=== PATIENT | male | born 1970 | race Caucasian/White ===

== ENCOUNTER 2019-06-16 06:18 | Day surgery (SDC) | payer MEDICAID, SELFPAY ==
[2019-05-31 08:42] VITALS: BMI 32.4
--- NOTE | 2019-06-15 19:23 | PCM.HP.BLA ---
History and Physical Date of Admission: 06/16/19 HISTORY OF PRESENT ILLNESS 49 year old man presents for evaluation for TBSE. He is concerned about a lesion on his left postauricular area that has increased in size over the last several months and has become more raised in configuration. He denies trauma. He denies fever. He denies drainage or bleeding. Denies recent infection. It has developed a cutaneous horn component that forms and then falls off and then reforms again. He presents today for further evaluation and treatment. PAST MEDICAL HISTORY Asthma Back problem Diabetes Right breast cancer. PAST SURGICAL HISTORY Right breast biopsy. ALLERGIES aspirin Penicillins MEDICATIONS liraglutide metformin FAMILY HISTORY Other - Arthritis, Diabetes, Heart disease SOCIAL HISTORY Smoking Status: Current every day smoker alcohol intake: never substance use type: does not use REVIEW OF SYSTEMS General - Denies fever, fatigue, and weight loss. Eyes - Denies cataracts and glaucoma. ENT - Denies nasal congestion and sore throat. Endocrine - Denies excessive thirst and urination. Skin - Denies skin cancer. Has enlarging cutaneous horn lesion left postauricular area. Musculoskeletal - Has joint pain, joint stiffness, and back pain. Denies weakness of muscles and joints and arthritis. Neuro - Denies headaches. Cardiovascular - Denies chest pain, fatigue, and shortness of breath with exertion. Psych - Denies anxiety and depression. Respiratory - Denies chronic cough and shortness of breath. Has asthma. Patient is a smoker. Gastrointestinal - Denies nausea, vomiting, diarrhea, and constipation. Hematologic - Denies abnormal bruising and bleeding. Genitourinary - Denies hematuria and urinary frequency. PHYSICAL EXAMINATION General - Alert and Oriented. HEENT - PERRL. EOMI. Throat is clear. On the left postauricular area is a cutaneous horn lesion that is raised in configuration. Has irregular borders. No ulceration. Lesion is nontender. Measures 7 mm. Neck - Supple and nontender. No cervical adenopathy. No suspicious lesions noted. Lungs - Clear to auscultation. Heart - Regular rate and rhythm. Abdomen - Soft and nondistended. Extremities - FROM. No axillary adenopathy. Radial pulses are palpable. No suspicious lesions noted. Neuro - CN II-XII grossly intact. Psych - Normal mood and affect. ASSESSMENT 1. 7 mm cutaneous horn lesion left postauricular area. 2. Smoker. PLAN Recommend excision of this cutaneous horn lesion left postauricular area and send it to Pathology for analysis to rule out carcinoma. Will need a full thickness excision. If carcinoma is present, then further excision will be needed with skin graft or skin flap reconstruction. Surgery will be done on an outpatient basis under local anesthesia and IV sedation. Patient was informed of the risks and complications of the procedure including alternatives to surgery. These were discussed with the patient personally. Patient voices understanding and wishes to proceed. Some of the risks and complications were included in a form from the [employer]. Encouraged patient to stop smoking as it may have deleterious effects on wound healing.
--- NOTE | 2019-06-16 | LES_PTH ---
PATIENT: WILLOW FLEMING [place] [facility] [place][id number] AGE/SX: 49/M ROOM: RE06/16/[address]: Dr. Vasile Woodall MD : 1970 BED: DIS: 06/16/2019 SPEC #: [id number] RECD: 06/16/19 08:21 STATUS: JAMILA JANNET #: [id number] AMANDA: 06/16/19 00:[address]: Vasile Woodall DEPT: SURGICAL PATHOLOGY RECD BY: Dorota Contreras ENTERED: 06/16/19 09:44 SP TYPE: Lesion OTHR DR: Dr. Jaime Calle MD Tissues: A - Skin of postauricular region B - Skin of postauricular region Procedures: Frozen Section (charge) Surgery Specimen Level IV HEADER OPERATION: Excision cutaneous horn lesion postauricular area PRE-OP DIAGNOSIS: 7 mm cutaneous horn lesion left postauricular area TISSUE SUBMITTED: A - Cutaneous horn lesion left postauricular area, suture at 12 o'clock, frozen section, B - Extra tissue verrucous keratosis FROZEN SECTION DIAGNOSIS A. Cutaneous horn lesion, right postauricular area, biopsy: Verrucous keratosis. Negative for malignancy. SJ:nichol 06/16/19 MICROSCOPIC DIAGNOSIS A. Skin lesion, right postauricular region, biopsy: Consistent with verrucous keratosis. B. Extra tissue verrucous keratosis, biopsy: Solar elastosis and mild superficial dermatitis. No evidence of malignancy. See comment. AM:nichol 06/20/19 COMMENT B. Verrucous keratosis is not present in this specimen. Clinical correlation is suggested. MICROSCOPIC DESCRIPTION Slides are reviewed. GROSS DESCRIPTION A - Received fresh for frozen section diagnosis labeled with the patient's name is a specimen designated cutaneous horn lesion left postauricular area. The specimen consists of a conical piece of choi-white skin measuring 1.1 x 0.4 x 0.5 cm. The specimen is oriented by a suture at 12 o'clock. The specimen is inked as follows: 12 o'clock - black, 6 o'clock - blue. The specimen is bisected and submitted entirely for frozen section diagnosis in one cassette. / SJ:nichol 06/16/19 B - Received in fixative is one container labeled with the patient's name and designated extra tissue verrucous keratosis. The specimen consists of an irregular fragment of light choi soft tissue measuring 1.5 x 1 x 0.2 cm. The specimen is totally submitted in one cassette. / AM:nichol 06/19/19 TC:5 CPT: 32578 x2, 52185
[2019-06-16 06:29] VITALS: BP 122/79; PULSE 110; RESP 17; TEMP 36.4; O2SAT 98; BMI 32.1
[2019-06-16 06:50] LABS: Bedside Glucose 358 mg/dL (70-110)
[2019-06-16] MEDS: Mupirocin Ointment 22gm Tube 1 APPLIC (08:22)
--- NOTE | 2019-06-16 08:48 | OP.PCM_ITS ---
Report of Operation Date of Procedure: 06/16/19 Pre-Operative Diagnosis: 1. 7 mm cutaneous horn lesion left postauricular area. 2. Smoker. Post-Operative Diagnosis: 1. 7 mm verrucous keratosis left postauricular area. 2. Smoker. Surgery/Procedure Performed:: Excision 7 mm verrucous keratosis left postauricular area with 3 cm layered closure. Description of Surgical Findings:: 49 year old man presents for evaluation for TBSE. He is concerned about a lesion on his left postauricular area that has increased in size over the last several months and has become more raised in configuration. He denies trauma. He denies fever. He denies drainage or bleeding. Denies recent infection. It has developed a cutaneous horn component that forms and then falls off and then reforms again. Patient was informed of the risks and complications of the procedure including alternatives to surgery. These were discussed with the patient personally. Patient voices understanding and wishes to proceed. Some of the risks and complications were included in a form from the [employer]. Encouraged patient to stop smoking as it may have deleterious effects on wound healing. Frozen section - verrucous keratosis and no carcinoma seen. 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 Specimen's removed: 1. Cutaneous horn lesion left postauricular area to Pathology as a frozen section. 2. Verrucous keratosis left postauricular area to Pathology. Drains: None. Estimated Blood Loss (mL): 5 ml. Description of Procedure: Patient was taken to OR in supine position and was given IV sedation. The left postauricular area was prepped and draped in the usual fashion. SCD's were placed for DVT prophylaxis. Perioperative antibiotics were given intravenously. The cutaneous horn lesion left postauricular area was infiltrated with xylocaine and epinephrine. After waiting 5 minutes for the anesthetic to take effect, I excised the cutaneous horn lesion in a circular fashion into the subcutaneous tissue. A suture was marked at 12 oclock position for pathology orientation. The lesion was sent to Pathology as a frozen section for analysis to rule out carcinoma. Frozen section showed a verrucous keratosis and no c arcinoma seen. I then extended the defect into an elliptical one for ease in wound closure. The additional tissue was sent to Pathology for analysis. Hemostasis was obtained with electrocautery. I excised the lesion with a 2 mm margin in all directions thus making it an 11 mm excision and a 3 cm layered closure. The wound was closed in a layered fashion with 4-0 Monocryl interrupted sutures for the deep dermis and subcutaneous tissue. The skin was approximated with 4-0 Prolene simple interrupted sutures. Antibiotic ointment was applied to the incision followed by an Op Site dressing. Patient tolerated the procedure well and was sent to PACU in satisfactory condition. Patient will be sent home on antibiotics and pain medication. He will keep his head elevated during the initial postop period. Patient will followup in a week for a wound check and for discussion of the pathology report and for removal of the sutures. Grafts/Implants Used: None. - Complications None. - Admit VTE Documentation VTE Present on Admission: No VTE Mechan Device Prophylaxis: SCD's VTE Pharm Prophylaxis ordered?: No Code Visit Surgery Charges CPT - 96320 ICD-10 - D49.2, L82.1, F17.200 07535 D49.2, L82.1, F17.200
[2019-06-16 08:51] VITALS: BP 120/78; BP 122/79; PULSE 97; RESP 16; TEMP 36.4; O2SAT 94
[2019-06-16 08:55] VITALS: BP 112/83; BP 122/79; PULSE 97; RESP 16; O2SAT 95
--- NOTE | 2019-06-16 08:56 | DCINST_ITS ---
You will use the following diet at home:: No restrictions Discharge Activity: May not drive while taking narcotic pain medications., May Shower - in2 days, - - keep head elevated. no heavy lifting. May shower in (days): 2 May resume sexual activity in: No Restrictions Weight Bearing Status: Weight bearing as tolerated Lifting Restrictions: 20 lbs. Keep extremity elevated above heart level: - - elevate head. Call your doctor if your incision/area has: Continuous Slow Oozing, Sudden Increased Bleeding, Increased Pain/ Swelling, Increased Redness, Foul Smelling Discharge, Swelling at the incision site Call your doctor if you observe: Fever of 101 or Higher, Coldness, Increased Pain, Shortness of breath, Chest pain, Calf discomfort, Uncontrolled pain Suture Line Care: - - apply antibiotic ointment to suture line daily. Change Dressing in (Days):: 2 Allergies/Adverse Reactions: Allergies aspirin Allergy (Verified 06/16/19 06:26) ALLERGY Penicillins Allergy (Verified 06/16/19 06:26) ALLERGY Medications to take at Discharge liraglutide 0.6 mg/0.1 mL (18 mg/3 mL) subcutaneous pen injector 0.6 mg SC DAILY 04/06/19 metformin 1,000 mg tablet 1,000 mg PO BID 04/06/19 Clindamycin HCl [Cleocin] 300 mg PO TID #12 cap 06/16/19 Oxycodone HCl/Acetaminophen [Percocet 5/325] 1 tab PO TID PRN PRN 5 Days #15 tab 06/16/19 The following prescriptions were given: Clindamycin HCl [Cleocin] 300 mg PO TID #12 cap Prescription Printed Oxycodone HCl/Acetaminophen [Percocet 5/325] 1 tab PO TID PRN PRN 5 Days #15 tab PRN Reason: Pain Prescription Printed Primary Care Physician: Jaime Calle MD [Primary Care Provider] - Test Results: Test results from this visit will be discussed in further detail at your follow- up appointment, if applicable. Please Follow Up With: Vasile Woodall MD When: one week. call [phone] for appt. Proposed Discharge Date: 06/16/19
[2019-06-16 09:00] VITALS: BP 100/84; BP 122/79; PULSE 93; RESP 16; O2SAT 92
[2019-06-16 09:05] VITALS: BP 121/82; BP 122/79; BP 124/83; PULSE 93; PULSE 96; RESP 16; TEMP 36.4; O2SAT 95
[2019-06-16 09:31] LABS: Bedside Glucose 274 mg/dL (70-110)
[2019-06-16 09:43] VITALS: BP 122/79
== END 2019-06-16 09:46 | disposition home or self-care (01) ==
LOC: SDC 06:18 → AC 06:19
PROVIDERS: Family Provider Family Medicine; PCP Family Medicine; Referring Provider Surgery; Visit Provider Surgery
DX: L57.0 Actinic keratosis (principal); L57.8 Other skin changes due to chronic exposure to nonionizing radiation; L30.9 Dermatitis, unspecified; W89.9XXA Exposure to unspecified man-made visible and ultraviolet light, initial encounter; Y93.9 Activity, unspecified; Y92.9 Unspecified place or not applicable; Y99.9 Unspecified external cause status; E11.9 Type 2 diabetes mellitus without complications; J45.909 Unspecified asthma, uncomplicated; F17.200 Nicotine dependence, unspecified, uncomplicated; Z79.84 Long term (current) use of oral hypoglycemic drugs; Z79.899 Other long term (current) drug therapy; Z88.6 Allergy status to analgesic agent; Z88.0 Allergy status to penicillin; Z85.3 Personal history of malignant neoplasm of breast
CPT/HCPCS: 00300; 11442; 12052; 82962; 88305; 88331; J7120

== ENCOUNTER 2022-07-29 11:00 | Outpatient (RCR) | payer MEDICAID, SELFPAY ==
[2022-07-15 09:22] VITALS: BP 85/59; PULSE 74; TEMP 36.2
--- NOTE | 2022-07-15 13:11 | HP.PCM_ITS ---
History of Present Illness Date of Service: 07/15/22 Chief Complaint: Follow-up on decubitus ulcer of the left ischium and sacral area History of Wound: This is a 52-year-old white male that developed sepsis and in December had an infection in the spine they trying to clean it out and he developed paralysis 2 days later postop. Patient was hospitalized for 3 months and developed 2 decubitus ulcers one in the sacral area and one on the left ischium area. They have progressively gotten worse and the are down to bone stage IV decubitus ulcers. Patient has been seen at the [facility] and was transferred to our center. This was through family's request. Patient is currently on a memory foam type bedding. Patient did have wound vacs but was removed by the physician feeling they were getting worse. And told just to do wet-to-dry dressings. So for the last month approximately has been doing wet-to-dry dressings to the sacral and left ischium area He also has developed a unstageable area on the underneath the left ischium that has eschar. Patient is currently receiving Zosyn through his PICC line. Patient is a smoker and diabetic. Is currently controlled with his Victoza metformin. He is also on clindamycin 3 times a day. [facility] Medical History (Updated 07/15/22 @ 13:35 by Renu Toth NP, [employer]) Asthma Back problem Diabetes Home Medications liraglutide 0.6 mg/0.1 mL (18 mg/3 mL) subcutaneous pen injector (Victoza 2-Rudi) 0.6 mg subcut DAILY 04/06/19 [History Last Taken Unknown] metformin 1,000 mg tablet 1,000 mg PO BID diabetes 04/06/19 [History Last Taken Unknown] clindamycin HCl 300 mg capsule 300 mg PO TID #12 caps 06/16/19 [Rx Last Taken Unknown] Allergy/AdvReac Type Severity Reaction Status Date / Time aspirin Allergy ALLERGY Verified 06/22/19 13:19 Penicillins Allergy ALLERGY Verified 06/22/19 13:19 Family History Other Arthritis Diabetes Heart disease Social History Smoking Status: Current every day smoker alcohol intake: never substance use type: does not use additional social history: DOES NOT USE ASPIRIN DOES NOT USE IBUPROFEN ROS Constitutional Constitutional: Reports systems reviewed and no addt'l complaints, except as documented Eyes Eyes: Reports systems reviewed and no addt'l complaints, except as documented ENT HEENT: Reports systems reviewed and no addt'l complaints, except as documented Cardiovascular Cardiovascular: Reports systems reviewed and no addt'l complaints, except as documented Respiratory/Chest Respiratory/Chest: Reports systems reviewed and no addt'l complaints, except as documented Gastrointestinal Gastrointestinal: Reports systems reviewed and no addt'l complaints, except as documented Genitourinary Genitourinary: Reports systems reviewed and no addt'l complaints, except as documented Musculoskeletal Musculoskeletal: Reports systems reviewed and no addt'l complaints, except as documented Integumentary Integumentary: Reports skin ulcer Neurologic Neurologic: Reports systems reviewed and no addt'l complaints, except as documented Psychiatric Psychiatric: Reports systems reviewed and no addt'l complaints, except as documented Endocrine Endocrinology: Reports systems reviewed and no addt'l complaints, except as documented Hematologic/Lymphatic Hematologic/Lymphatic: Reports systems reviewed and no addt'l complaints, except as documented Allergic/Immunologic Allergic/Immunologic: Reports systems reviewed and no addt'l complaints, except as documented Vital Signs Vital Signs Vital Signs: 07/15/22 09:22 Temperature 97.2 F L Temperature Source Temporal Pulse Rate 74 Blood Pressure 85/59 L Blood Pressure Mean 67 Blood Pressure Source Monitor Blood Pressure Position Sitting Blood Pressure Location Right Arm Physical Exam Const oriented x3 General Appearance: cooperative Exam Limitations: no limitations HEENT normocephalic Eyes PERRL Neck full ROM Resp normal respiratory effort Effort and Inspection: able to speak in complete sentences Auscultation: clear to auscultation bilaterally Cardio regular rate and regular rhythm Palpation: normal PMI Rate: regular rate Rhythm: regular rhythm GI Auscultation: normoactive bowel sounds Palpation: soft and no hepatosplenomegaly Back/Spine Cervical Spine: cervical ROM normal Thoracic Spine / Upper Back: normal to inspection Extremity normal to inspection Skin Skin Narrative: 2 large decubitus ulcers measuring around 10 x 20 cm with 5 cm in depth both on his left ischium and sacral area. Skin is beefy red does have some necrotic tissue in both. Currently receiving wet-to-dry dressings. Other skin areas look well intact and supple. Is well-nourished though he is then Neuro oriented x3 Psych Appearance: grossly normal Speech: normal speech Debridement Note Debridement Note Wound debrided: Left ischium decubitus ulcer Wound Grade/Stage: Stage IV Type of Debridement: Excisional debridement Anesthesia Used: 5% Lidocaine Gel Depth: to bone Percentage of wound debrided: 100 Instrument Used: 7mm curette, #15 blade and Forceps Tissue Removed: Slough and fibrin necrotic tissue Severity: Necrosis of Muscle Amount of bleeding with debridement: Mild Bleeding Controlled with: Compression and gauze Patient tolerated procedure: Patient tolerated procedure well Post-Debridement Measurements and Additional Note: Post-Debridement Measurements/Treatment KATHRYN - Nurse 1 - General Ulcer Assessment Start: 07/15/22 09:22 Freq: Status: Active Protocol: FEDERICO Activity Type Activity Date Activity User E-sign Co-sign Detail Recorded Client Recorded Date Recorded By Document 07/15/22 09:22 JASEN [id number] 07/15/22 09:52 JASEN 07/15/22 09:22 WC - Today's Visit Information Type of service Initial Visit Arrival Mode Ambulatory Patient Identification Verified (Name & Yes ) Vital Signs Temperature (97.8 F-99.1 F) 97.2 F L Temperature Source Temporal Pulse Rate (60-100) 74 Pulse Location Monitor Blood Pressure (90/60-120/80) 85/59 L Blood Pressure Mean (mm Hg) 67 Source Monitor Position Sitting Blood Pressure Location Right Arm History Since Last Visit- (Skip if this is Patient's initial visit) Have you changed medications since your No last visit? Any new allergies or adverse reactions No Had a fall/change in ADL's that may No increase risk of falls Signs or symptoms of abuse and/or No neglect since last visit Have you been in the hospital since your No last visit? Has dressing in place as prescribed No Has compression in place as prescribed N/A Has offloadiing in place as prescribed N/A Experienced any changes in pain level or No management Left Footwear Regular Shoe Pain Scale: 0-10 Numeric Is Patient Pain Free? Yes KATHRYN - Nurse 1 - General Ulcer Measurement Start: 07/15/22 09:22 Freq: Status: Active Protocol: Activity Type Activity Date Activity User E-sign Co-sign Detail Recorded Client Recorded Date Recorded By Document 07/15/22 09:22 JASEN [id number] 07/15/22 09:52 KR 07/15/22 09:22 Wound Center Nurse 1 #3 Right ischial -Current Size (cm) - Length 6.5 -Current Size (cm) - Width 8 -Current Size (cm) - Depth 0.2 -Total Square Cm 52.0 -Exudate Amt None Present -Wound Margin Distinct, Outline Attached -Granulation Amt None Present (0 %) -Necrosis Amt Large (67-100%) -Necrotic Tissue Type Adherent Slough -Texture (Amanda-wound Skin Appearance) Assessed, Scarring -Moisture (Amanda-wound Skin Appearance) No Abnormality, Assessed -Color (Amanda-wound Skin Appearance) No Abnormality, Assessed -Temperature (Amanda-wound Skin No Abnormality Appearance) (Pt Warm) -Tenderness on Palpation (Amanda-wound No Skin Appearance) -Ulcer Cleansing Rinsed/ Irrigated with Saline -Foul Odor after Cleansing No -Anesthetic Used 4% Lidocaine Solution,5% Lidocaine Gel #2 Left Ischial -Current Size (cm) - Length 16 -Current Size (cm) - Width 20 -Current Size (cm) - Depth 2.5 -Total Square Cm 320 -Undermining/Tunneling Starts (O'clock 11 ) -Undermining/Tunneling Ends (O'clock) 1 -Maximum Distance (cm) 2.9 -Exudate Amt Large -Exudate Type Serosanguineous -Wound Margin Thickened -Granulation Amt Large (67-100%) -Granulation Quality Red -Necrosis Amt Large (67-100%) -Necrotic Tissue Type Necrosis of Muscle -Texture (Amanda-wound Skin Appearance) Assessed, Scarring -Moisture (Amanda-wound Skin Appearance) No Abnormality, Assessed -Color (Amanda-wound Skin Appearance) No Abnormality, Assessed -Temperature (Amanda-wound Skin No Abnormality Appearance) (Pt Warm) -Tenderness on Palpation (Amanda-wound No Skin Appearance) -Ulcer Cleansing Rinsed/ Irrigated with Saline -Foul Odor after Cleansing No -Anesthetic Used 4% Lidocaine Solution,5% Lidocaine Gel #1 Sacral -Current Size (cm) - Length 16 -Current Size (cm) - Width 15 -Current Size (cm) - Depth 0.5 -Total Square Cm 240 -Undermining/Tunneling Starts (O'clock 12 ) -Undermining/Tunneling Ends (O'clock) 12 -Maximum Distance (cm) 4 -Exudate Amt Large -Exudate Type Serosanguineous -Wound Margin Thickened -Granulation Amt Large (67-100%) -Granulation Quality Red -Necrosis Amt Medium (34-66%) -Necrotic Tissue Type Necrosis of Bone -Texture (Amanda-wound Skin Appearance) Assessed, Scarring -Moisture (Amanda-wound Skin Appearance) No Abnormality, Assessed -Color (Amanda-wound Skin Appearance) No Abnormality, Assessed -Temperature (Amanda-wound Skin No Abnormality Appearance) (Pt Warm) -Tenderness on Palpation (Amanda-wound No Skin Appearance) -Ulcer Cleansing Rinsed/ Irrigated with Saline -Foul Odor after Cleansing No -Anesthetic Used 4% Lidocaine Solution,5% Lidocaine Gel WC - Nurse 2 - General Ulcer CM Notes Start: 07/15/22 09:22 Freq: Status: Active Protocol: Activity Type Activity Date Activity User E-sign Co-sign Detail Recorded Client Recorded Date Recorded By Document 07/15/22 10:13 MW [id number] 07/15/22 10:37 MW 07/15/22 10:13 Wound Center Nurse 2 #3 Right ischial -Time 10:14 -Correct Patient Yes -Correct Side, Site, Position Yes -Correct Procedure Yes -Procedure Performed No -Post Debridement (cm) - Length 7.5 -Post Debridement (cm) - Width 7.5 -Post Debridement (cm) - Depth 0 -Total Square (Post) (cm) 56.25 -Circular Undermining No #2 Left Ischial -Time 10:14 -Correct Patient Yes -Correct Side, Site, Position Yes -Correct Procedure Yes -Procedure Performed Yes -Type of Procedure Debridement -Clinical Debridement Muscle / Fascia -Tissue Removed Muscle,Fascia -Post Debridement (cm) - Length 15.9 -Post Debridement (cm) - Width 20.0 -Post Debridement (cm) - Depth 3.0 -Total Square (Post) (cm) 318.00 -Area of Debridement (cm) - Length 15.9 -Area of Debridement (cm) - Width 20.0 -Total Square (Area) (cm) 318.00 -Tunneling No -Undermining/Tunneling No -Circular Undermining No -Wound/Ulcer Outcome Not Healed -Ulcer Cleansing Rinsed/ Irrigated with Saline -Foul Odor after Cleansing No -Bioengineered Tissue No -Bleeding Controlled with Pressure -Treatment Response Procedure Tolerated Well -Offloading No -Debridement - Muscle / Fascia, 1st Yes 20sq cm -Debridement, Muscle/Fascia, ea addt'l 26 20sq cm or part thereof #1 Sacral -Time 10:14 -Correct Patient Yes -Correct Side, Site, Position Yes -Correct Procedure Yes -Procedure Performed Yes -Type of Procedure Debridement -Clinical Debridement Muscle / Fascia -Tissue Removed Muscle,Fascia -Post Debridement (cm) - Length 15.3 -Post Debridement (cm) - Width 14.0 -Post Debridement (cm) - Depth 5.0 -Total Square (Post) (cm) 214.20 -Area of Debridement (cm) - Length 15.3 -Area of Debridement (cm) - Width 14.0 -Total Square (Area) (cm) 214.20 -Tunneling No -Undermining/Tunneling No -Circular Undermining No -Wound/Ulcer Outcome Not Healed -Ulcer Cleansing Rinsed/ Irrigated with Saline -Foul Odor after Cleansing No -Bioengineered Tissue No -Bleeding Controlled with Pressure -Treatment Response Procedure Tolerated Well -Offloading No -Debridement - Muscle / Fascia, 1st No 20sq cm Pain Scale: 0-10 Numeric Is Patient Pain Free? Yes - Nurse 3 - General Ulcer D/C NN Start: 07/15/22 09:22 Freq: Status: Active Protocol: Activity Type Activity Date Activity User E-sign Co-sign Detail Recorded Client Recorded Date Recorded By Document 07/15/22 10:46 JASEN [id number] 07/15/22 10:46 JASEN 07/15/22 10:46 Wound Care Nurse 3 #3 Right ischial -Ulcer Cleansing Rinsed/ Irrigated with Saline -Other Dressing ABD, Betadine, Dakins -Primary Dressing Covered/Secured with Dry Gauze,Dry Gauze & Roll Gauze,Secured with Tape Pain Scale: 0-10 Numeric Is Patient Pain Free? Yes WC - Visit Discharge Discharge Condition Stable Ambulatory Status Wheelchair Transportation Private Auto Accompanied by Additional Wound Wound debrided: Sacral decubitus ulcer Wound Grade/Stage: Stage IV Type of Debridement: Excisional debridement Anesthesia Used: 5% Lidocaine Gel Depth: to muscle and to bone Percentage of wound debrided: 100 Instrument Used: 7mm curette, #15 blade and Forceps Tissue Removed: Devitalized tissue necrosis and fibrin Severity: Necrosis of Muscle Amount of bleeding with debridement: Mild Bleeding Controlled with: Compression and gauze Patient tolerated procedure: Patient tolerated procedure well Additional Wound Wound debrided: Lateral to left ischium Laterality: Left Wound Grade/Stage: Unstageable Type of Debridement: - (No debridement) Assessment/Plan Assessment/Plan (1) Decubitus ulcer of left buttock, stage 4: CODE(S): L89.324 - Pressure ulcer of left buttock, stage 4 PLAN: Wash wound with Hibiclens rinse with normal saline or water pack with Burow solution and Curlex to wound base cover with ABDs and tape 2 times a day cultures were obtained from the area (2) Decubitus ulcer of sacral region, stage 4: CODE(S): L89.154 - Pressure ulcer of sacral region, stage 4 PLAN: Wash wound with Hibiclens rinse with normal saline or water pack with Burow solution and Kerlix to wound base cover with ABDs and tape 2 times a day Cultures were obtained from the area Patient will need a low air mattress and hospital bed Patient will need a proper padding for his wheelchair is in a gel cushion Follow-up in 1 week we will consider putting patient back on wound VAC at that time (3) Smoker: CODE(S): F17.200 - Nicotine dependence, unspecified, uncomplicated PLAN: Continue to try to stop smoking
[2022-07-22 10:35] VITALS: BP 96/66; PULSE 92; RESP 18; TEMP 36.2
--- NOTE | 2022-07-22 13:06 | PN.PCM_ITS ---
History of Present Illness Date of Service: 07/22/22 Chief Complaint: Follow-up on decubitus ulcer of the left ischium and sacral area History of Wound: This is a 52-year-old white male that developed sepsis and in December had an infection in the spine they trying to clean it out and he developed paralysis 2 days later postop. Patient was hospitalized for 3 months and developed 2 decubitus ulcers one in the sacral area and one on the left ischium area. They have progressively gotten worse and the are down to bone stage IV decubitus ulcers. Patient has been seen at the [facility] and was transferred to our center. This was through family's request. Patient is currently on a memory foam type bedding. Patient did have wound vacs but was removed by the physician feeling they were getting worse. And told just to do wet-to-dry dressings. So for the last month approximately has been doing wet-to-dry dressings to the sacral and left ischium area He also has developed a unstageable area on the underneath the left ischium that has eschar. Patient is currently receiving Zosyn through his PICC line. Patient is a smoker and diabetic. Is currently controlled with his Victoza metformin. He is also on clindamycin 3 times a day. Progress of Wound: The eschar of the right ischium was soft we removed it it was very odiferous. The left ischium is very clean and open and positive depth 5 cm. The sacral area is very open positive depth and full of necrotic tissue that was debrided today also. Patient's cultures came back positive patient was started on ciprofloxacin twice a day for 14 days. has been using Burow solution to wound base wet-to-dry. We will start a wound VAC for next week. He also receives his bed low air mattress on Wednesday. Subjective Subjective seems to be satisfied with his care Objective Data Objective Data The right ischium really smells bad and we removed the top still looks good inside. Rest of the wounds are the same in measurement which is trying to keep them clean until we can get him into a wound VAC. Vital Signs: Vital Signs Temp Pulse Resp BP O2 Del Method 97.1 F L 92 18 96/66 Room Air 07/22/22 10:35 07/22/22 10:35 07/22/22 10:35 07/22/22 10:35 07/22/22 10:35 Oxygen Delivery Method Room Air Lab / Micro Data Attestation: I reviewed the patient's lab results. Micro: Microbiology 07/15/22 10:20 Wound Abcess - Ischium Gram Stain - Final 07/15/22 10:20 Wound Abcess - Ischium Wound Culture - Final Corynebacterium striatum Citrobacter farmeri Pseudomonas aeroginosa 07/15/22 10:20 Wound Abcess - Ischium Anaerobic Culture - Final No anaerobic bacteria isolated. Physical Exam Const oriented x3 General Appearance: cooperative Exam Limitations: no limitations HEENT normocephalic Eyes PERRL Neck full ROM Resp normal respiratory effort Effort and Inspection: able to speak in complete sentences Auscultation: clear to auscultation bilaterally Cardio regular rate and regular rhythm Palpation: normal PMI Rate: regular rate Rhythm: regular rhythm GI Auscultation: normoactive bowel sounds Palpation: soft and no hepatosplenomegaly Back/Spine Cervical Spine: cervical ROM normal Thoracic Spine / Upper Back: normal to inspection Extremity normal to inspection Skin Skin Narrative: 2 large decubitus ulcers measuring around 10 x 20 cm with 5 cm in depth both on his left ischium and sacral area. Skin is beefy red does have some necrotic tissue in both. Currently receiving wet-to-dry dressings. Other skin areas look well intact and supple. Is well-nourished though he is then Neuro oriented x3 Psych Appearance: grossly normal Speech: normal speech Debridement Note Debridement Note Wound debrided: Left ischium Wound Grade/Stage: Stage IV Type of Debridement: Excisional debridement Anesthesia Used: 5% Lidocaine Gel Depth: to bone Percentage of wound debrided: 100 Instrument Used: 7mm curette, #15 blade and Forceps Tissue Removed: Necrotic tissue and devitalized tissue and fibrin Severity: Necrosis of Muscle Amount of bleeding with debridement: Mild Bleeding Controlled with: Compression and gauze Patient tolerated procedure: Patient tolerated procedure well Post-Debridement Measurements and Additional Note: Post-Debridement Measurements/Treatment WC - Nurse 1 - General Ulcer Assessment Start: 07/15/22 09:22 Freq: Status: Active Protocol: [place] Activity Type Activity Date Activity User E-sign Co-sign Detail Recorded Client Recorded Date Recorded By Document 07/15/22 09:22 JASEN [id number] 07/15/22 09:52 KR Document 07/22/22 10:35 [facility] [id number] 07/22/22 10:53 [facility] 07/15/22 07/22/22 09:22 10:35 - Today's Visit Information Type of service Initial Visit Follow-up Visit (Physician/MAITRE D ) Arrival Mode Ambulatory Wheelchair Transfer Assistance Parker Lift Transfer Assist (Other) 3 Accompanied by Patient Identification Verified (Name & Yes Yes ) Patient Requires Transmission-Based No Precautions Vital Signs Temperature (97.8 F-99.1 F) 97.2 F L 97.1 F L Temperature Source Temporal Temporal Pulse Rate (60-100) 74 92 Pulse Location Monitor Monitor Respiratory Rate (12-18) 18 Respiratory rate source Observation Oxygen Delivery Method Room Air Blood Pressure (90/60-120/80) 85/59 L 96/66 Blood Pressure Mean (mm Hg) 67 76 Source Monitor Monitor Position Sitting Sitting Blood Pressure Location Right Arm Right Arm History Since Last Visit- (Skip if this is Patient's initial visit) Have you changed medications since your No No last visit? Any new allergies or adverse reactions No No Had a fall/change in ADL's that may No No increase risk of falls Signs or symptoms of abuse and/or No No neglect since last visit Have you been in the hospital since your No No last visit? Has dressing in place as prescribed No Yes Has compression in place as prescribed N/A N/A Has offloadiing in place as prescribed N/A N/A Experienced any changes in pain level or No No management Left Footwear Regular Shoe Regular Shoe Right Footwear Regular Shoe Pain Scale: 0-10 Numeric Is Patient Pain Free? Yes Yes - Nurse 1 - General Ulcer Measurement Start: 07/15/22 09:22 Freq: Status: Active Protocol: Activity Type Activity Date Activity User E-sign Co-sign Detail Recorded Client Recorded Date Recorded By Document 07/15/22 09:22 [id number] 07/15/22 09:52 Document 07/22/22 10:35 [facility] [id number] 07/22/22 10:53 [facility] 07/15/22 07/22/22 09:22 10:35 Wound Center Nurse 1 #3 Right ischial -Combined with other wound No -Current Size (cm) - Length 6.5 6.5 -Current Size (cm) - Width 8 9.4 -Current Size (cm) - Depth 0.2 2.3 -Total Square Cm 52.0 61.10 -Photo Taken No -Epithelialization None Present -Tunneling No -Undermining/Tunneling No -Circular Undermining No -Exudate Amt None Present Medium -Exudate Type Serosanguineous -Wound Margin Distinct, Distinct, Outline Outline Attached Attached -Granulation Amt None Present (0 Small (1-33%) %) -Granulation Quality Red -Slough/Fibrin Yes -Necrosis Amt Large (67-100%) Large (67-100%) -Necrotic Tissue Type Adherent Slough Eschar -Texture (Amanda-wound Skin Appearance) Assessed, Assessed, Scarring Scarring -Moisture (Amanda-wound Skin Appearance) No Abnormality, Assessed Assessed -Color (Amanda-wound Skin Appearance) No Abnormality, Assessed, Assessed Erythema -Temperature (Amanda-wound Skin No Abnormality No Abnormality Appearance) (Pt Warm) (Pt Warm) -Tenderness on Palpation (Amanda-wound No Yes Skin Appearance) -Ulcer Cleansing Rinsed/ Soap and Water Irrigated with Saline -Foul Odor after Cleansing No No -Anesthetic Used 4% Lidocaine 4% Lidocaine Solution,5% Solution Lidocaine Gel #2 Left Ischial -Combined with other wound No -Current Size (cm) - Length 16 15 -Current Size (cm) - Width 20 18.2 -Current Size (cm) - Depth 2.5 3.6 -Total Square Cm 320 273.0 -Date of Last Picture (Recall this 07/22/22 field) -Photo Taken Yes -Epithelialization None Present -Tunneling No -Undermining/Tunneling No -Undermining/Tunneling Starts (O'clock 11 ) -Undermining/Tunneling Ends (O'clock) 1 -Maximum Distance (cm) 2.9 -Circular Undermining No -Exudate Amt Large Large -Exudate Type Serosanguineous Serosanguineous -Wound Margin Thickened Distinct, Outline Attached -Granulation Amt Large (67-100%) Large (67-100%) -Granulation Quality Red Red -Slough/Fibrin Yes -Necrosis Amt Large (67-100%) Small (1-33%) -Necrotic Tissue Type Necrosis of Adherent Slough Muscle -Structure Exposed Muscle -Texture (Amanda-wound Skin Appearance) Assessed, Assessed Scarring -Moisture (Amanda-wound Skin Appearance) No Abnormality, Assessed Assessed -Color (Amanda-wound Skin Appearance) No Abnormality, Assessed, Assessed Erythema -Temperature (Amanda-wound Skin No Abnormality No Abnormality Appearance) (Pt Warm) (Pt Warm) -Tenderness on Palpation (Amanda-wound No No Skin Appearance) -Ulcer Cleansing Rinsed/ Soap and Water Irrigated with Saline -Foul Odor after Cleansing No No -Anesthetic Used 4% Lidocaine 4% Lidocaine Solution,5% Solution Lidocaine Gel #1 Sacral -Combined with other wound No -Current Size (cm) - Length 16 15.7 -Current Size (cm) - Width 15 14.3 -Current Size (cm) - Depth 0.5 5.5 -Total Square Cm 240 224.51 -Photo Taken No -Epithelialization None Present -Tunneling No -Undermining/Tunneling No -Undermining/Tunneling Starts (O'clock 12 ) -Undermining/Tunneling Ends (O'clock) 12 -Maximum Distance (cm) 4 -Circular Undermining No -Exudate Amt Large Large -Exudate Type Serosanguineous Serosanguineous -Wound Margin Thickened Distinct, Outline Attached -Granulation Amt Large (67-100%) Large (67-100%) -Granulation Quality Red Red -Slough/Fibrin Yes -Necrosis Amt Medium (34-66%) Small (1-33%) -Necrotic Tissue Type Necrosis of Adherent Slough Bone -Structure Exposed Muscle,Bone -Texture (Amanda-wound Skin Appearance) Assessed, Assessed Scarring -Moisture (Amanda-wound Skin Appearance) No Abnormality, Assessed Assessed -Color (Amanda-wound Skin Appearance) No Abnormality, Assessed, Assessed Erythema -Temperature (Amanda-wound Skin No Abnormality No Abnormality Appearance) (Pt Warm) (Pt Warm) -Tenderness on Palpation (Amanda-wound No Yes Skin Appearance) -Ulcer Cleansing Rinsed/ Soap and Water Irrigated with Saline -Foul Odor after Cleansing No No -Anesthetic Used 4% Lidocaine 4% Lidocaine Solution,5% Solution Lidocaine Gel WC - Nurse 2 - General Ulcer CM Notes Start: 07/15/22 09:22 Freq: Status: Active Protocol: Activity Type Activity Date Activity User E-sign Co-sign Detail Recorded Client Recorded Date Recorded By Document 07/15/22 10:13 MW [id number] 07/15/22 10:37 MW Document 07/22/22 11:06 MW [id number] 07/22/22 11:41 MW 07/15/22 07/22/22 10:13 11:06 Wound Center Nurse 2 #3 Right ischial -Time 10:14 11:07 -Correct Patient Yes Yes -Correct Side, Site, Position Yes Yes -Correct Procedure Yes Yes -Procedure Performed No Yes -Type of Procedure Debridement -Clinical Debridement Muscle / Fascia -Tissue Removed Muscle,Fascia -Post Debridement (cm) - Length 7.5 6.5 -Post Debridement (cm) - Width 7.5 7.5 -Post Debridement (cm) - Depth 0 1.0 -Total Square (Post) (cm) 56.25 48.75 -Area of Debridement (cm) - Length 6.5 -Area of Debridement (cm) - Width 7.5 -Total Square (Area) (cm) 48.75 -Tunneling No -Undermining/Tunneling No -Circular Undermining No No -Wound/Ulcer Outcome Not Healed -Ulcer Cleansing Rinsed/ Irrigated with Saline -Foul Odor after Cleansing No -Bioengineered Tissue No -Bleeding Controlled with Pressure -Treatment Response Procedure Tolerated Well -Offloading No -Debridement - Muscle / Fascia, 1st No 20sq cm #2 Left Ischial -Time 10:14 11:10 -Correct Patient Yes Yes -Correct Side, Site, Position Yes Yes -Correct Procedure Yes Yes -Procedure Performed Yes Yes -Type of Procedure Debridement Debridement -Clinical Debridement Muscle / Fascia Muscle / Fascia -Tissue Removed Muscle,Fascia Muscle,Fascia -Post Debridement (cm) - Length 15.9 13.5 -Post Debridement (cm) - Width 20.0 21.0 -Post Debridement (cm) - Depth 3.0 3.0 -Total Square (Post) (cm) 318.00 283.50 -Area of Debridement (cm) - Length 15.9 13.5 -Area of Debridement (cm) - Width 20.0 21.0 -Total Square (Area) (cm) 318.00 283.50 -Tunneling No No -Undermining/Tunneling No No -Circular Undermining No No -Wound/Ulcer Outcome Not Healed Not Healed -Ulcer Cleansing Rinsed/ Rinsed/ Irrigated with Irrigated with Saline Saline -Foul Odor after Cleansing No No -Bioengineered Tissue No No -Bleeding Controlled with Pressure Pressure -Treatment Response Procedure Procedure Tolerated Well Tolerated Well -Offloading No No -Debridement - Muscle / Fascia, 1st Yes Yes 20sq cm -Debridement, Muscle/Fascia, ea addt'l 26 28 20sq cm or part thereof #1 Sacral -Time 10:14 11:10 -Correct Patient Yes Yes -Correct Side, Site, Position Yes Yes -Correct Procedure Yes Yes -Procedure Performed Yes Yes -Type of Procedure Debridement Debridement -Clinical Debridement Muscle / Fascia Muscle / Fascia -Tissue Removed Muscle,Fascia Muscle,Fascia -Post Debridement (cm) - Length 15.3 14.0 -Post Debridement (cm) - Width 14.0 16.5 -Post Debridement (cm) - Depth 5.0 5.0 -Total Square (Post) (cm) 214.20 231.00 -Area of Debridement (cm) - Length 15.3 14.0 -Area of Debridement (cm) - Width 14.0 16.5 -Total Square (Area) (cm) 214.20 231.00 -Tunneling No No -Undermining/Tunneling No No -Circular Undermining No No -Wound/Ulcer Outcome Not Healed Not Healed -Ulcer Cleansing Rinsed/ Rinsed/ Irrigated with Irrigated with Saline Saline -Foul Odor after Cleansing No No -Bioengineered Tissue No No -Bleeding Controlled with Pressure Pressure -Treatment Response Procedure Procedure Tolerated Well Tolerated Well -Offloading No No -Debridement - Muscle / Fascia, 1st No No 20sq cm Pain Scale: 0-10 Numeric Is Patient Pain Free? Yes Yes WC - Nurse 3 - General Ulcer D/C NN Start: 07/15/22 09:22 Freq: Status: Active Protocol: Activity Type Activity Date Activity User E-sign Co-sign Detail Recorded Client Recorded Date Recorded By Document 07/15/22 10:46 KR [id number] 07/15/22 10:46 KR Document 07/22/22 11:44 [facility] [id number] 07/22/22 11:47 [facility] 07/15/22 07/22/22 10:46 11:44 Wound Care Nurse 3 #3 Right ischial -Ulcer Cleansing Rinsed/ Soap and Water Irrigated with Saline -Foul Odor after Cleansing No -Primary Dressing Applied Hysept ($) -Other Dressing ABD, Betadine, BILL FOR 2 Dakins BOTTLES OF HYSEPT PER CM -Primary Dressing Covered/Secured with Dry Gauze,Dry Secured with Gauze & Roll Tape Gauze,Secured with Tape -Other Covering ABD, KERLIX MOISTENED W/ DAKINS PER RB RN #2 Left Ischial -Ulcer Cleansing Soap and Water -Foul Odor after Cleansing No -Primary Dressing Applied Hysept ($) -Primary Dressing Covered/Secured with Secured with Tape -Other Covering ABD, DAKINS MOIST KERLIX PER RB RN #1 Sacral -Ulcer Cleansing Soap and Water -Foul Odor after Cleansing No -Other Dressing DAKINS MOST GAUZE PER RB RN -Primary Dressing Covered/Secured with Secured with Tape -Other Covering ABD Treatment Response Procedure Tolerated Well Pain Scale: 0-10 Numeric Is Patient Pain Free? Yes Yes WC - Visit Discharge Discharge Condition Stable Stable Ambulatory Status Wheelchair Wheelchair Transportation Private Auto Private Auto Accompanied by W/C [place] Facility Type Home Health Additional Wound Wound debrided: Right ischium Laterality: Right Wound Grade/Stage: Stage III Type of Debridement: Excisional debridement Depth: to muscle Percentage of wound debrided: 100 Instrument Used: 7mm curette, #15 blade and Forceps Tissue Removed: Eschar devitalized tissue Severity: Necrosis of Muscle Amount of bleeding with debridement: None Patient tolerated procedure: Patient tolerated procedure well Additional Wound Wound debrided: Sacral decubitus ulcer Wound Grade/Stage: Stage IV Type of Debridement: Excisional debridement Anesthesia Used: 5% Lidocaine Gel Depth: to muscle and to bone Percentage of wound debrided: 100 Instrument Used: 7mm curette, #15 blade and Forceps Tissue Removed: Necrotic devitalized tissue and fibrin Severity: Necrosis of Muscle Amount of bleeding with debridement: Mild Bleeding Controlled with: Compression and gauze Patient tolerated procedure: Patient tolerated procedure well Assessment/Plan Assessment/Plan (1) Decubitus ulcer of left buttock, stage 4: CODE(S): L89.324 - Pressure ulcer of left buttock, stage 4 PLAN: Wash wound with Hibiclens rinse with normal saline or water pack with Burow solution and Curlex to wound base cover with ABDs and tape 2 times a day cultures were obtained from the area (2) Decubitus ulcer of sacral region, stage 4: CODE(S): L89.154 - Pressure ulcer of sacral region, stage 4 PLAN: Wash wound with Hibiclens rinse with normal saline or water pack with Burow solution and Kerlix to wound base cover with ABDs and tape 2 times a day Cultures were obtained from the area Patient will need a low air mattress and hospital bed Patient will need a proper padding for his wheelchair is in a gel cushion Follow-up in 1 week we will consider putting patient back on wound VAC at that time (3) Smoker: CODE(S): F17.200 - Nicotine dependence, unspecified, uncomplicated PLAN: Continue to try to stop smoking (4) Decubitus ulcer of right buttock, stage 3: CODE(S): L89.313 - Pressure ulcer of right buttock, stage 3 PLAN: Wash area with antibacterial soap and apply the Burow solution saturated and [place] and ABDs and tape every day Continue the antibiotic therapy of ciprofloxacin 500 mg twice a day for 14 days Applied for wound VAC bring back next visit
[2022-07-29 10:50] VITALS: BP 99/61; PULSE 97; RESP 18; TEMP 35.9
--- NOTE | 2022-07-29 12:19 | PCM.WC.PN ---
History of Present Illness Date of Service: 07/29/22 Chief Complaint: Follow-up on decubitus ulcer of the left ischium and sacral area History of Wound: This is a 52-year-old white male that developed sepsis and in December had an infection in the spine they trying to clean it out and he developed paralysis 2 days later postop. Patient was hospitalized for 3 months and developed 2 decubitus ulcers one in the sacral area and one on the left ischium area. They have progressively gotten worse and the are down to bone stage IV decubitus ulcers. Patient has been seen at the [facility] and was transferred to our center. This was through family's request. Patient is currently on a memory foam type bedding. Patient did have wound vacs but was removed by the physician feeling they were getting worse. And told just to do wet-to-dry dressings. So for the last month approximately has been doing wet-to-dry dressings to the sacral and left ischium area He also has developed a unstageable area on the underneath the left ischium that has eschar. Patient is currently receiving Zosyn through his PICC line. Patient is a smoker and diabetic. Is currently controlled with his Victoza metformin. He is also on clindamycin 3 times a day. Progress of Wound: The eschar of the right ischium was debrided this week and actually is connected to the sacral area is 1 giant wound. No odor detected this week patient has been taking his antibiotics. Patient is still on a PICC line for his osteomyelitis but the PICC line is not working properly and they are unable to draw blood but it is flushing okay. The left ischium that was surgically debrided at 1 time is still very clean and open and positive depth 5 cm. The sacral area is very open positive depth and full of necrotic tissue that was debrided today also. Patient's cultures came back positive patient was started on ciprofloxacin twice a day for 14 days. has been using Burow solution to wound base wet-to-dry. We will start a wound VAC today. He also receives his bed but no mattress . We put in for a consult to surgery for surgical debridement of the left ischium. We also are getting labs for CBC a comprehensive sed rate prealbumin vitamin D vitamin B and magnesium. We will also consult our infectious disease and get them involved and chocolate maker to see if may be a tube feed or TPN would be appropriate for him to build him up for surgery in the future Subjective Subjective and patient are agreeable to treatment plan Objective Data Objective Data As stated above in the progress note Vital Signs: Vital Signs Temp Pulse Resp BP O2 Del Method 96.7 F L 97 18 99/61 Room Air 07/29/22 10:50 07/29/22 10:50 07/29/22 10:50 07/29/22 10:50 07/29/22 10:50 Oxygen Delivery Method Room Air Lab / Micro Data Micro: Microbiology 07/15/22 10:20 Wound Abcess - Ischium Gram Stain - Final 07/15/22 10:20 Wound Abcess - Ischium Wound Culture - Final Corynebacterium striatum Citrobacter farmeri Pseudomonas aeroginosa 07/15/22 10:20 Wound Abcess - Ischium Anaerobic Culture - Final No anaerobic bacteria isolated. Physical Exam Const oriented x3 General Appearance: cooperative Exam Limitations: no limitations HEENT normocephalic Eyes PERRL Neck full ROM Resp normal respiratory effort Effort and Inspection: able to speak in complete sentences Auscultation: clear to auscultation bilaterally Cardio regular rate and regular rhythm Palpation: normal PMI Rate: regular rate Rhythm: regular rhythm GI Auscultation: normoactive bowel sounds Palpation: soft and no hepatosplenomegaly Back/Spine Cervical Spine: cervical ROM normal Thoracic Spine / Upper Back: normal to inspection Extremity normal to inspection Skin Skin Narrative: 2 large decubitus ulcers measuring around 10 x 20 cm with 5 cm in depth both on his left ischium and sacral area. Skin is beefy red does have some necrotic tissue in both. Currently receiving wet-to-dry dressings. Other skin areas look well intact and supple. Is well-nourished though he is then Neuro oriented x3 Psych Appearance: grossly normal Speech: normal speech Debridement Note Debridement Note Wound debrided: Left ischium decubitus ulcer stage IV Laterality: Left Wound Grade/Stage: Stage IV Type of Debridement: Excisional debridement Anesthesia Used: 5% Lidocaine Gel Depth: to bone Percentage of wound debrided: 80 Instrument Used: #15 blade and Forceps Tissue Removed: Necrotic Severity: Fat Layer Exposed Amount of bleeding with debridement: None Patient tolerated procedure: Patient tolerated procedure well Post-Debridement Measurements and Additional Note: Post-Debridement Measurements/Treatment WC - Nurse 1 - General Ulcer Assessment Start: 07/15/22 09:22 Freq: Status: Active Protocol: [email or web address].LOWMARIYAT Activity Type Activity Date Activity User E-sign Co-sign Detail Recorded Client Recorded Date Recorded By Document 07/15/22 09:22 JASEN [id number] 07/15/22 09:52 KR Document 07/22/22 10:35 [facility] [id number] 07/22/22 10:53 BM Document 07/29/22 10:50 [facility] [id number] 07/29/22 10:59 BMF 07/15/22 07/22/22 07/29/22 09:22 10:35 10:50 - Today's Visit Information Type of service Initial Visit Follow-up Visit Follow-up Visit (Physician/APPLICATION INTEGRATION ARCHITECT (Physician/APPLICATION INTEGRATION ARCHITECT ) ) Arrival Mode Ambulatory Wheelchair Wheelchair Transfer Assistance Parker Lift Parker Lift Transfer Assist (Other) 3 2 Accompanied by Patient Identification Verified (Name & Yes Yes Yes ) Patient Requires Transmission-Based No No Precautions Vital Signs Temperature (97.8 F-99.1 F) 97.2 F L 97.1 F L 96.7 F L Temperature Source Temporal Temporal Temporal Pulse Rate (60-100) 74 92 97 Pulse Location Monitor Monitor Monitor Respiratory Rate (12-18) 18 18 Respiratory rate source Observation Observation Oxygen Delivery Method Room Air Room Air Blood Pressure (90/60-120/80) 85/59 L 96/66 99/61 Blood Pressure Mean (mm Hg) 67 76 73 Source Monitor Monitor Monitor Position Sitting Sitting Sitting Blood Pressure Location Right Arm Right Arm Left Arm History Since Last Visit- (Skip if this is Patient's initial visit) Have you changed medications since your No No No last visit? Any new allergies or adverse reactions No No No Had a fall/change in ADL's that may No No No increase risk of falls Signs or symptoms of abuse and/or No No No neglect since last visit Have you been in the hospital since your No No No last visit? Has dressing in place as prescribed No Yes Yes Has compression in place as prescribed N/A N/A N/A Has offloadiing in place as prescribed N/A N/A N/A Experienced any changes in pain level or No No No management Left Footwear Regular Shoe Regular Shoe Regular Shoe Right Footwear Regular Shoe Regular Shoe Pain Scale: 0-10 Numeric Is Patient Pain Free? Yes Yes Yes WC - Nurse 1 - General Ulcer Measurement Start: 07/15/22 09:22 Freq: Status: Active Protocol: Activity Type Activity Date Activity User E-sign Co-sign Detail Recorded Client Recorded Date Recorded By Document 07/15/22 09:22 KR [id number] 07/15/22 09:52 KR Document 07/22/22 10:35 BMF [id number] 07/22/22 10:53 BMF Document 07/29/22 10:50 BMF [id number] 07/29/22 10:59 BMF 07/15/22 07/22/22 07/29/22 09:22 10:35 10:50 Wound Center Nurse 1 #3 Right ischial -Combined with other wound No No -Current Size (cm) - Length 6.5 6.5 11 -Current Size (cm) - Width 8 9.4 4 -Current Size (cm) - Depth 0.2 2.3 0.3 -Total Square Cm 52.0 61.10 44 -Date of Last Picture (Recall this 07/29/22 field) -Photo Taken No Yes -Epithelialization None Present None Present -Tunneling No No -Undermining/Tunneling No No -Circular Undermining No No -Exudate Amt None Present Medium Medium -Exudate Type Serosanguineous Serosanguineous -Wound Margin Distinct, Distinct, Distinct, Outline Outline Outline Attached Attached Attached -Granulation Amt None Present (0 Small (1-33%) Medium (34-66%) %) -Granulation Quality Red Red -Slough/Fibrin Yes Yes -Necrosis Amt Large (67-100%) Large (67-100%) Medium (34-66%) -Necrotic Tissue Type Adherent Slough Eschar Adherent Slough -Texture (Amanda-wound Skin Appearance) Assessed, Assessed, Assessed, Scarring Scarring Scarring -Moisture (Amanda-wound Skin Appearance) No Abnormality, Assessed Assessed Assessed -Color (Amanda-wound Skin Appearance) No Abnormality, Assessed, Assessed Assessed Erythema -Temperature (Amanda-wound Skin No Abnormality No Abnormality No Abnormality Appearance) (Pt Warm) (Pt Warm) (Pt Warm) -Tenderness on Palpation (Amanda-wound No Yes No Skin Appearance) -Ulcer Cleansing Rinsed/ Soap and Water Soap and Water Irrigated with Saline -Foul Odor after Cleansing No No No -Anesthetic Used 4% Lidocaine 4% Lidocaine 4% Lidocaine Solution,5% Solution Solution Lidocaine Gel #2 Left Ischial -Combined with other wound No No -Current Size (cm) - Length 16 15 15 -Current Size (cm) - Width 20 18.2 18 -Current Size (cm) - Depth 2.5 3.6 1.5 -Total Square Cm 320 273.0 270 -Date of Last Picture (Recall this 07/22/22 07/29/22 field) -Photo Taken Yes Yes -Epithelialization None Present None Present -Tunneling No No -Undermining/Tunneling No Yes -Undermining/Tunneling Starts (O'clock 11 12 ) -Undermining/Tunneling Ends (O'clock) 1 12 -Maximum Distance (cm) 2.9 2 -Circular Undermining No Yes -Exudate Amt Large Large Large -Exudate Type Serosanguineous Serosanguineous Serosanguineous -Wound Margin Thickened Distinct, Distinct, Outline Outline Attached Attached -Granulation Amt Large (67-100%) Large (67-100%) Large (67-100%) -Granulation Quality Red Red Red -Slough/Fibrin Yes Yes -Necrosis Amt Large (67-100%) Small (1-33%) Small (1-33%) -Necrotic Tissue Type Necrosis of Adherent Slough Adherent Slough Muscle -Structure Exposed Muscle Muscle,Bone -Texture (Amanda-wound Skin Appearance) Assessed, Assessed Assessed, Scarring Scarring -Moisture (Amanda-wound Skin Appearance) No Abnormality, Assessed Assessed Assessed -Color (Amanda-wound Skin Appearance) No Abnormality, Assessed, Assessed Assessed Erythema -Temperature (Amanda-wound Skin No Abnormality No Abnormality No Abnormality Appearance) (Pt Warm) (Pt Warm) (Pt Warm) -Tenderness on Palpation (Amanda-wound No No No Skin Appearance) -Ulcer Cleansing Rinsed/ Soap and Water Soap and Water Irrigated with Saline -Foul Odor after Cleansing No No No -Anesthetic Used 4% Lidocaine 4% Lidocaine 4% Lidocaine Solution,5% Solution Solution Lidocaine Gel #1 Sacral -Combined with other wound No No -Current Size (cm) - Length 16 15.7 17 -Current Size (cm) - Width 15 14.3 17.5 -Current Size (cm) - Depth 0.5 5.5 2 -Total Square Cm 240 224.51 297.5 -Date of Last Picture (Recall this 07/29/22 field) -Photo Taken No Yes -Epithelialization None Present None Present -Tunneling No No -Undermining/Tunneling No Yes -Undermining/Tunneling Starts (O'clock 12 12 ) -Undermining/Tunneling Ends (O'clock) 12 12 -Maximum Distance (cm) 4 1.5 -Circular Undermining No Yes -Exudate Amt Large Large Large -Exudate Type Serosanguineous Serosanguineous Serosanguineous -Wound Margin Thickened Distinct, Distinct, Outline Outline Attached Attached -Granulation Amt Large (67-100%) Large (67-100%) Large (67-100%) -Granulation Quality Red Red Red -Slough/Fibrin Yes Yes -Necrosis Amt Medium (34-66%) Small (1-33%) Small (1-33%) -Necrotic Tissue Type Necrosis of Adherent Slough Adherent Slough Bone -Structure Exposed Muscle,Bone Muscle,Bone -Texture (Amanda-wound Skin Appearance) Assessed, Assessed Assessed, Scarring Scarring -Moisture (Amanda-wound Skin Appearance) No Abnormality, Assessed Assessed Assessed -Color (Amanda-wound Skin Appearance) No Abnormality, Assessed, Assessed Assessed Erythema -Temperature (Amanda-wound Skin No Abnormality No Abnormality No Abnormality Appearance) (Pt Warm) (Pt Warm) (Pt Warm) -Tenderness on Palpation (Amanda-wound No Yes No Skin Appearance) -Ulcer Cleansing Rinsed/ Soap and Water Soap and Water Irrigated with Saline -Foul Odor after Cleansing No No No -Anesthetic Used 4% Lidocaine 4% Lidocaine 4% Lidocaine Solution,5% Solution Solution Lidocaine Gel WC - Nurse 2 - General Ulcer CM Notes Start: 07/15/22 09:22 Freq: Status: Active Protocol: Activity Type Activity Date Activity User E-sign Co-sign Detail Recorded Client Recorded Date Recorded By Document 07/15/22 10:13 MW [id number] 07/15/22 10:37 MW Document 07/22/22 11:06 MW [id number] 07/22/22 11:41 MW Document 07/29/22 11:11 MW [id number] 07/29/22 11:34 MW 07/15/22 07/22/22 07/29/22 10:13 11:06 11:11 Wound Center Nurse 2 #3 Right ischial -Time 10:14 11:07 11:11 -Correct Patient Yes Yes Yes -Correct Side, Site, Position Yes Yes Yes -Correct Procedure Yes Yes Yes -Procedure Performed No Yes Yes -Type of Procedure Debridement Debridement -Clinical Debridement Muscle / Fascia Muscle / Fascia -Tissue Removed Muscle,Fascia Muscle,Fascia -Post Debridement (cm) - Length 7.5 6.5 8.0 -Post Debridement (cm) - Width 7.5 7.5 11.0 -Post Debridement (cm) - Depth 0 1.0 3.0 -Total Square (Post) (cm) 56.25 48.75 88.00 -Area of Debridement (cm) - Length 6.5 8.0 -Area of Debridement (cm) - Width 7.5 11.0 -Total Square (Area) (cm) 48.75 88.00 -Tunneling No No -Undermining/Tunneling No No -Circular Undermining No No No -Wound/Ulcer Outcome Not Healed Not Healed -Ulcer Cleansing Rinsed/ Rinsed/ Irrigated with Irrigated with Saline Saline -Foul Odor after Cleansing No No -Bioengineered Tissue No No -Bleeding Controlled with Pressure Pressure -Treatment Response Procedure Procedure Tolerated Well Tolerated Well -Offloading No No -Debridement - Muscle / Fascia, 1st No Yes 20sq cm -Debridement, Muscle/Fascia, ea addt'l 33 20sq cm or part thereof #2 Left Ischial -Time 10:14 11:10 11:11 -Correct Patient Yes Yes Yes -Correct Side, Site, Position Yes Yes Yes -Correct Procedure Yes Yes Yes -Procedure Performed Yes Yes Yes -Type of Procedure Debridement Debridement Debridement -Clinical Debridement Muscle / Fascia Muscle / Fascia Muscle / Fascia -Tissue Removed Muscle,Fascia Muscle,Fascia Muscle,Fascia -Post Debridement (cm) - Length 15.9 13.5 20.0 -Post Debridement (cm) - Width 20.0 21.0 16.0 -Post Debridement (cm) - Depth 3.0 3.0 3.0 -Total Square (Post) (cm) 318.00 283.50 320.00 -Area of Debridement (cm) - Length 15.9 13.5 20.0 -Area of Debridement (cm) - Width 20.0 21.0 16.0 -Total Square (Area) (cm) 318.00 283.50 320.00 -Tunneling No No No -Undermining/Tunneling No No No -Circular Undermining No No No -Wound/Ulcer Outcome Not Healed Not Healed Not Healed -Ulcer Cleansing Rinsed/ Rinsed/ Rinsed/ Irrigated with Irrigated with Irrigated with Saline Saline Saline -Foul Odor after Cleansing No No No -Bioengineered Tissue No No No -Bleeding Controlled with Pressure Pressure Pressure -Treatment Response Procedure Procedure Procedure Tolerated Well Tolerated Well Tolerated Well -Offloading No No No -Debridement - Muscle / Fascia, 1st Yes Yes No 20sq cm -Debridement, Muscle/Fascia, ea addt'l 26 28 20sq cm or part thereof #1 Sacral -Time 10:14 11:10 11:12 -Correct Patient Yes Yes Yes -Correct Side, Site, Position Yes Yes Yes -Correct Procedure Yes Yes Yes -Procedure Performed Yes Yes Yes -Type of Procedure Debridement Debridement Debridement -Clinical Debridement Muscle / Fascia Muscle / Fascia Muscle / Fascia -Tissue Removed Muscle,Fascia Muscle,Fascia Muscle,Fascia -Post Debridement (cm) - Length 15.3 14.0 17.5 -Post Debridement (cm) - Width 14.0 16.5 15.5 -Post Debridement (cm) - Depth 5.0 5.0 5.0 -Total Square (Post) (cm) 214.20 231.00 271.25 -Area of Debridement (cm) - Length 15.3 14.0 17.5 -Area of Debridement (cm) - Width 14.0 16.5 15.5 -Total Square (Area) (cm) 214.20 231.00 271.25 -Tunneling No No No -Undermining/Tunneling No No No -Circular Undermining No No No -Wound/Ulcer Outcome Not Healed Not Healed Not Healed -Ulcer Cleansing Rinsed/ Rinsed/ Rinsed/ Irrigated with Irrigated with Irrigated with Saline Saline Saline -Foul Odor after Cleansing No No No -Bioengineered Tissue No No No -Bleeding Controlled with Pressure Pressure Pressure -Treatment Response Procedure Procedure Procedure Tolerated Well Tolerated Well Tolerated Well -Offloading No No No -Debridement - Muscle / Fascia, 1st No No No 20sq cm Pain Scale: 0-10 Numeric Is Patient Pain Free? Yes Yes Yes WC - Nurse 3 - General Ulcer D/C NN Start: 07/15/22 09:22 Freq: Status: Active Protocol: Activity Type Activity Date Activity User E-sign Co-sign Detail Recorded Client Recorded Date Recorded By Document 07/15/22 10:46 KR [id number] 07/15/22 10:46 KR Document 07/22/22 11:44 BMF [id number] 07/22/22 11:47 BMF Document 07/29/22 12:08 BMF [id number] 07/29/22 12:17 BMF Edit Result 07/29/22 12:08 BMF (1) [id number] 07/29/22 12:17 BMF (1) Facility Type [facility] [employer] => Home Health Facility => 07/15/22 07/22/22 07/29/22 10:46 11:44 12:08 Wound Care Nurse 3 #3 Right ischial -Ulcer Cleansing Rinsed/ Soap and Water Rinsed/ Irrigated with Irrigated with Saline Saline -Foul Odor after Cleansing No No -Negative Pressure Wound Therapy Start -Setting (mmHg) 150 -Negative Pressure is Continuous -Primary Dressing Applied Hysept ($) -Other Dressing ABD, Betadine, BILL FOR 2 Dakins BOTTLES OF HYSEPT PER CM -Primary Dressing Covered/Secured with Dry Gauze,Dry Secured with Gauze & Roll Tape Gauze,Secured with Tape -Other Covering ABD, KERLIX MOISTENED W/ DAKINS PER RB RN -NPWT Application Charge NPWT & Debridement (nc ) #2 Left Ischial -Ulcer Cleansing Soap and Water Rinsed/ Irrigated with Saline -Foul Odor after Cleansing No No -Negative Pressure Wound Therapy Continue -Setting (mmHg) 150 -Negative Pressure is Continuous -Primary Dressing Applied Hysept ($) -Primary Dressing Covered/Secured with Secured with Tape -Other Covering ABD, DAKINS MOIST KERLIX PER RB RN -NPWT Application Charge NPWT - Multiple Locations #1 Sacral -Ulcer Cleansing Soap and Water Rinsed/ Irrigated with Saline -Foul Odor after Cleansing No No -Negative Pressure Wound Therapy Continue -Setting (mmHg) 150 -Negative Pressure is Continuous -Other Dressing DAKINS MOST GAUZE PER RB RN -Primary Dressing Covered/Secured with Secured with Tape -Other Covering ABD -NPWT Application Charge NPWT & Debridement (nc ) Treatment Response Procedure Procedure Tolerated Well Tolerated Well Pain Scale: 0-10 Numeric Is Patient Pain Free? Yes Yes Yes WC - Visit Discharge Discharge Condition Stable Stable Stable Ambulatory Status Wheelchair Wheelchair Wheelchair Transportation Private Auto Private Auto Private Auto Accompanied by W/C VAN Facility Type Home Health Home Health Additional Wound Wound debrided: Sacral wound Wound Grade/Stage: Stage IV Type of Debridement: Excisional debridement Anesthesia Used: 5% Lidocaine Gel Depth: to muscle Percentage of wound debrided: 100 Instrument Used: #15 blade and Forceps Tissue Removed: Necrotic tissue Severity: Fat Layer Exposed Amount of bleeding with debridement: Mild Bleeding Controlled with: Compression and gauze Patient tolerated procedure: Patient tolerated procedure well Additional Wound Wound debrided: Left buttocks Laterality: Left Wound Grade/Stage: Stage IV Type of Debridement: Excisional debridement Anesthesia Used: 5% Lidocaine Gel Depth: in the subcutaneous layer Percentage of wound debrided: 100 Instrument Used: 7mm curette, #15 blade and Forceps Tissue Removed: Slough and fibrin Severity: Fat Layer Exposed Amount of bleeding with debridement: None Patient tolerated procedure: Patient tolerated procedure well Assessment/Plan Assessment/Plan (1) Decubitus ulcer of left buttock, stage 4: CODE(S): L89.324 - Pressure ulcer of left buttock, stage 4 PLAN: Wound VAC to left buttocks with a bridge to sacral and left ischium. 120 mmHg is to watch and to learn how to apply wound VAC Wound VAC will be changed twice weekly by home health care nurse If patient loses seal and unable to get a better seal then she is to go back to Wash wound with Hibiclens rinse with normal saline or water pack with Burow solution and Curlex to wound base cover with ABDs and tape 2 times a day (2) Decubitus ulcer of sacral region, stage 4: CODE(S): L89.154 - Pressure ulcer of sacral region, stage 4 PLAN: Wound VAC to area at 120 mmHg bridged to left buttocks area. If seal is broken and unable to fix then Wash wound with Hibiclens rinse with normal saline or water pack with Burow solution and Kerlix to wound base cover with ABDs and tape 2 times a day Patient will get a low air mattress and hospital bed Patient will get a proper padding for his wheelchair is in a gel cushion Follow-up in 1 week (3) Smoker: CODE(S): F17.200 - Nicotine dependence, unspecified, uncomplicated PLAN: Continue to try to stop smoking (4) Decubitus ulcer of right buttock, stage 3: CODE(S): L89.313 - Pressure ulcer of right buttock, stage 3 PLAN: Wound VAC applied with bridge and 120 mmHg if fails then Wash area with antibacterial soap and apply the Burow solution saturated and Colton and ABDs and tape every day Continue the antibiotic therapy of ciprofloxacin 500 mg twice a day for 14 days
[2022-07-29 13:42] LABS: Absolute Lymphocyte Count 1.21 X10^3/uL (0.83-4.51); Absolute Neutrophil Count 10.2 X10^3/uL (2.0-7.7); Basophil# 0.08 X10^3/uL; Basophil% 0.6 % (0-1); Eosinophil# 0.62 X10^3/uL; Eosinophils% 4.8 % (0-5); Hematocrit 33.4 % (40-54); Hemoglobin 10.2 g/dL (13.0-16.5); Lymphocyte # 1.21 X10^3/ul (0.83-4.51); Lymphocyte % 9.4 % (19-41); Mean Corp Hgb Conc 30.5 g/dL (32-36); Mean Corpuscular Hgb 26.6 pg (27.0-32.0); Mean Platelet Vol. 8.5 fl (6.2-12.0); Monocyte# 0.57 X10^3/uL; Monocyte% 4.4 % (0-10); NRBC Flagged by Analyzer 0 % (0-5); Neutrophil # 10.17 X10^3/uL (2.7-7.7); Neutrophil % 78.8 % (47-70); Platelet Count 534 K/mm3 (150-450); RBC Distribution Width CV 15.2 % (11.6-14.6); RBC Distribution Width SD 48.4 fl (35.1-43.9); Red Blood Count 3.84 M/mm3 (4.6-6.2); White Blood Count 12.9 K/mm3 (4.4-11.0)
[2022-07-29 13:51] LABS: Erythrocyte Sedimentation Rate 75 mm/hr (0-20)
[2022-07-29 14:00] LABS: Vitamin B12 1299 pg/mL (211-911); Vitamin D,25 Hydroxy 25.7 ng/mL
[2022-07-29 14:07] LABS: ALB/GLOB Ratio 0.3 RATIO (0.9-2.4); AST(SGOT) 9 U/L (15-37); Alanine Aminotransfer ALT/SGPT 11 U/L (16-61); Albumin, Serum 1.8 g/dL (3.2-5.0); Alkaline Phosphatase 137 U/L (45-117); Anion Gap 10 (5-15); BUN 14 mg/dL (7-18); BUN/Creat Ratio 15.7 RATIO (10-20); Calcium,Total 8.9 mg/dL (8.5-10.1); Chloride 104 mmol/L (98-107); Creatinine, Serum 0.89 mg/dL (0.70-1.30); EST Glomerular Filtration Rate 95 mL/min (>60); Est Glom Filt Rate - Afr Amer 115 mL/min (>60); Globulin 5.4 g/dL (2.2-4.2); Glucose 148 mg/dL (74-106); Magnesium 1.6 mg/dL (1.6-2.6); Potassium 3.3 mmol/L (3.5-5.1); Prealbumin 24.9 mg/dL (20.0-40.0); Protein, Total 7.2 g/dL (6.4-8.2); Sodium Level 137 mmol/L (136-145)
== END 2022-08-07 23:59 | disposition home or self-care (01) ==
LOC: WC 11:00
PROVIDERS: Referring Provider Nurse Practitioner; Visit Provider Nurse Practitioner
DX: L89.154 Pressure ulcer of sacral region, stage 4 (principal); L89.324 Pressure ulcer of left buttock, stage 4; L89.313 Pressure ulcer of right buttock, stage 3; G83.9 Paralytic syndrome, unspecified; E11.9 Type 2 diabetes mellitus without complications; Z79.84 Long term (current) use of oral hypoglycemic drugs; F17.200 Nicotine dependence, unspecified, uncomplicated; J45.909 Unspecified asthma, uncomplicated
CPT/HCPCS: 11043; 11046; 36415; 80053; 82306; 82607; 83735; 84134; 85025; 85652; 87070; 87075; 87077; 87186; 87205; 99204; G0463

== ENCOUNTER 2022-08-12 10:35 | Outpatient (RCR) | payer MEDICAID, SELFPAY ==
[2022-08-08 00:27] VITALS: BP 99/61; PULSE 97; RESP 18; TEMP 35.9
[2022-08-12 11:06] VITALS: BP 152/85; PULSE 76; TEMP 35.6
--- NOTE | 2022-08-12 11:16 | HP.PCM_ITS ---
History of Present Illness Date of Service: 08/12/22 Chief Complaint: WOUND CENTER CONSULT REFERRING PHYSICIAN: Renu Toth NP. PERCUSSION INSTRUCTOR: Dr. Woodall. Evaluation massive pressure sores, Stage IV, sacrum and bilateral ischial areas. History of Wound: This is a 52-year-old white male that developed sepsis and in December had an infection in the spine that required operative drainage. Postoperatively he developed paralysis. Patient was hospitalized for 3 months and developed pressure sores involving the sacral area and the ischial areas bilaterally. The pressure sores progressively worsened and extended down to the bone as stage IV pressure sores. Patient had been seen at the [place] wound center and was transferred to our center through family's request. Patient was on a memory foam type bedding when he came to [place] and a proper low air loss mattress was obtained for him. Initially the wounds were treated with the VAC and was changed to wet-to-dry dressings. Upon his arrival to [place], he was receiving Zosyn through his PICC line. Wound culture was obtained on 07/15/22. It showed Citrobacter farmeri, Pseudomonas aeroginosa, and Corynebacterium striatum. The Citrobacter was resistant to Zosyn. Both organisms were sensitive to Cipro and was started on it for 14 days. He tolerated the antibiotic well. In the process of obtaining the medical records from [place] (labs, x-rays, cultures, pathology). Patient is a smoker and diabetic. Is currently controlled with his Victoza metformin. Don't know his last HgbA1c. Will order one. His Prealbumin from 07/29/22 was 24.9. He is currently on Varun supplementation to help the healing process. The VAC was restarted at the Wound Center. The pressure sores are showing improvement with decrease in odor and better quality granulation tissue noted. I was asked to evaluate this patient for surgical options for treatment. Progress of Wound: Improved. [facility] Medical History Asthma Back problem Diabetes Paralysis Home Medications liraglutide 0.6 mg/0.1 mL (18 mg/3 mL) subcutaneous pen injector (Victoza 2-Rudi) 0.6 mg subcut DAILY 04/06/19 [History Last Taken Unknown] metformin 1,000 mg tablet 1,000 mg PO BID diabetes 04/06/19 [History Last Taken Unknown] Allergy/AdvReac Type Severity Reaction Status Date / Time aspirin Allergy ALLERGY Verified 06/22/19 13:19 Penicillins Allergy ALLERGY Verified 06/22/19 13:19 Family History Other Arthritis Diabetes Heart disease Social History Smoking Status: Current every day smoker alcohol intake: never substance use type: does not use additional social history: DOES NOT USE ASPIRIN DOES NOT USE IBUPROFEN ROS ROS Narrative REVIEW OF SYSTEMS General - Denies fever, fatigue, and weight loss. Eyes - Denies cataracts and glaucoma. ENT - Denies nasal congestion and sore throat. Endocrine - Denies excessive thirst and urination. Has diabetes mellitus. Skin - Denies suspicious lesions and skin cancer. Has massive pressure sores, Stage IV, sacral area and bilateral ischial areas. Musculoskeletal - Denies joint pain, joint stiffness, weakness of muscles and joints, back pain, and arthritis. Neuro - Denies headaches. 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 Cardiovascular - Denies chest pain, fatigue, and shortness of breath with exertion. Psych - Denies anxiety and depression. Respiratory - Denies chronic cough and shortness of breath Patient is a smoker. Gastrointestinal - Denies nausea, vomiting, diarrhea, and constipation. Hematologic - Denies abnormal bruising and bleeding. Genitourinary - Denies hematuria and urinary frequency. Vital Signs Vital Signs Vital Signs: 08/12/22 11:06 Temperature 96.0 F L Temperature Source Temporal Pulse Rate 76 Blood Pressure 152/85 H Blood Pressure Mean 107 Blood Pressure Source Monitor Blood Pressure Position Sitting Blood Pressure Location Left Arm Physical Exam Narrative PHYSICAL EXAMINATION General - Alert and Oriented. HEENT - PERRL. EOMI. Throat is clear. Neck - Supple and nontender. No cervical adenopathy. Lungs - Clear to auscultation. Heart - Regular rate and rhythm. Abdomen - Soft and nondistended. Extremities - Has lower extremity paralysis. No axillary adenopathy. Radial pulses are palpable. No inguinal adenopathy. Dorsalis pedis pulses are palpable. Lower back and buttocks - Has massive pressure sores involving the sacral area to the bone, and bilateral ischial areas to the bone. All Stage IV. Good quality granulation tissue noted. No purulent drainage noted. There is some nonviable tissue present scattered in the pressure sores. Bone is palpable and has some partial visibility and exposure. There was a small skin bridge the sacral pressure sore and the right ischial pressure sore that was sharply debrided today making it one larger massive pressure sore. The left ischial pressure sore measures 13 x 17.5 cm. The sacral pressure sore with extension to the right ischial pressure sore measures 25 x 14 cm. Neuro - CN II-XII grossly intact. Psych - Normal mood and affect. Debridement Note Debridement Note Wound debrided: The pressure sore ulcers were debrided today by Renu Toth NP. Post-Debridement Measurements and Additional Note: Post-Debridement Measurements/Treatment KATHRYN - Nurse 1 - General Ulcer Assessment Start: 08/12/22 11:05 Freq: Status: Active Protocol: WC.LOWEXT Activity Type Activity Date Activity User E-sign Co-sign Detail Recorded Client Recorded Date Recorded By Document 08/12/22 11:06 JASEN [id number] 08/12/22 11:25 08/12/22 11:06 - Today's Visit Information Type of service Follow-up Visit (Physician/RETAIL DEPARTMENT MANAGER ) Arrival Mode Wheelchair Transfer Assistance Parker Lift Patient Identification Verified (Name & Yes ) Vital Signs Temperature (97.8 F-99.1 F) 96.0 F L Temperature Source Temporal Pulse Rate (60-100) 76 Pulse Location Monitor Blood Pressure (90/60-120/80) 152/85 H Blood Pressure Mean 107 Source Monitor Position Sitting Blood Pressure Location Left Arm History Since Last Visit- (Skip if this is Patient's initial visit) Have you changed medications since your No last visit? Any new allergies or adverse reactions No Had a fall/change in ADL's that may No increase risk of falls Signs or symptoms of abuse and/or No neglect since last visit Have you been in the hospital since your No last visit? Has dressing in place as prescribed Yes Has compression in place as prescribed N/A Has offloadiing in place as prescribed N/A Experienced any changes in pain level or No management Left Footwear Regular Shoe Right Footwear Regular Shoe Pain Scale: 0-10 Numeric Is Patient Pain Free? Yes - Nurse 1 - General Ulcer Measurement Start: 08/12/22 11:05 Freq: Status: Active Protocol: Activity Type Activity Date Activity User E-sign Co-sign Detail Recorded Client Recorded Date Recorded By Document 08/12/22 11:06 JASEN [id number] 08/12/22 11:25 JASEN 08/12/22 11:06 Wound Center Nurse 1 #2 Left Ischial -Current Size (cm) - Length 13 -Current Size (cm) - Width 17.5 -Current Size (cm) - Depth 0.2 -Total Square Cm 227.5 -Undermining/Tunneling Starts (O'clock 11 ) -Undermining/Tunneling Ends (O'clock) 3 -Maximum Distance (cm) 2.7 -Exudate Amt Large -Exudate Type Serosanguineous -Wound Margin Distinct, Outline Attached -Granulation Amt Large (67-100%) -Granulation Quality Red -Necrosis Amt Medium (34-66%) -Necrotic Tissue Type Adherent Slough -Structure Exposed Bone,Fat Layer Exposed -Texture (Amanda-wound Skin Appearance) Assessed, Scarring -Moisture (Amanda-wound Skin Appearance) No Abnormality, Assessed -Color (Amanda-wound Skin Appearance) No Abnormality, Assessed -Temperature (Amanda-wound Skin No Abnormality Appearance) (Pt Warm) -Tenderness on Palpation (Amanda-wound No Skin Appearance) -Ulcer Cleansing Soap and Water -Foul Odor after Cleansing Yes -Anesthetic Used 4% Lidocaine Solution #1 Sacral cluster -Current Size (cm) - Length 25 -Current Size (cm) - Width 14 -Current Size (cm) - Depth 1.4 -Total Square Cm 350 -Undermining/Tunneling Starts (O'clock 8 ) -Undermining/Tunneling Ends (O'clock) 11 -Maximum Distance (cm) 3 -Exudate Amt Large -Exudate Type Serosanguineous -Wound Margin Distinct, Outline Attached -Granulation Amt Large (67-100%) -Granulation Quality Red -Necrosis Amt Medium (34-66%) -Necrotic Tissue Type Adherent Slough -Structure Exposed Bone,Fat Layer Exposed -Texture (Amanda-wound Skin Appearance) Assessed, Scarring -Moisture (Amanda-wound Skin Appearance) No Abnormality, Assessed -Color (Amanda-wound Skin Appearance) No Abnormality, Assessed -Temperature (Amanda-wound Skin No Abnormality Appearance) (Pt Warm) -Tenderness on Palpation (Amanda-wound No Skin Appearance) -Ulcer Cleansing Soap and Water -Foul Odor after Cleansing Yes -Anesthetic Used 4% Lidocaine Solution WC - Nurse 2 - General Ulcer CM Notes Start: 08/12/22 11:05 Freq: Status: Active Protocol: Activity Type Activity Date Activity User E-sign Co-sign Detail Recorded Client Recorded Date Recorded By Document 08/12/22 11:39 MW [id number] 08/12/22 12:14 MW 08/12/22 11:39 Wound Center Nurse 2 #3 Right ischial -Time 11:44 -Correct Patient Yes -Correct Side, Site, Position Yes -Correct Procedure Yes -Procedure Performed No -Tunneling No -Undermining/Tunneling No -Circular Undermining No -Wound/Ulcer Outcome Converted -Ulcer Cleansing Rinsed/ Irrigated with Saline -Foul Odor after Cleansing No -Bioengineered Tissue No -Bleeding Controlled with Pressure -Treatment Response Procedure Tolerated Well -Offloading No -Debridement - Subq, 1st 20sq cm No #2 Left Ischial -Time 11:44 -Correct Patient Yes -Correct Side, Site, Position Yes -Correct Procedure Yes -Procedure Performed Yes -Type of Procedure Debridement -Clinical Debridement Subcutaneous -Tissue Removed Subcutaneous -Post Debridement (cm) - Length 16.5 -Post Debridement (cm) - Width 14.0 -Post Debridement (cm) - Depth 1.5 -Total Square (Post) (cm) 231.00 -Area of Debridement (cm) - Length 16.5 -Area of Debridement (cm) - Width 14.0 -Total Square (Area) (cm) 231.00 -Tunneling No -Undermining/Tunneling No -Circular Undermining No -Wound/Ulcer Outcome Not Healed -Ulcer Cleansing Rinsed/ Irrigated with Saline -Foul Odor after Cleansing No -Bioengineered Tissue No -Bleeding Controlled with Pressure -Treatment Response Procedure Tolerated Well -Offloading No -Debridement - Subq, 1st 20sq cm Yes -Debridement, SubQ, ea addt'l 20sq cm 27 or part thereof #1 Sacral cluster -Time 11:44 -Correct Patient Yes -Correct Side, Site, Position Yes -Correct Procedure Yes -Procedure Performed Yes -Type of Procedure Debridement -Clinical Debridement Subcutaneous -Tissue Removed Subcutaneous -Post Debridement (cm) - Length 24.0 -Post Debridement (cm) - Width 13.5 -Post Debridement (cm) - Depth 2.0 -Total Square (Post) (cm) 324.00 -Area of Debridement (cm) - Length 24.0 -Area of Debridement (cm) - Width 13.5 -Total Square (Area) (cm) 324.00 -Tunneling No -Undermining/Tunneling No -Circular Undermining No -Wound/Ulcer Outcome Not Healed -Ulcer Cleansing Rinsed/ Irrigated with Saline -Foul Odor after Cleansing No -Bioengineered Tissue No -Bleeding Controlled with Pressure -Treatment Response Procedure Tolerated Well -Offloading No -Debridement - Subq, 1st 20sq cm No Pain Scale: 0-10 Numeric Is Patient Pain Free? Yes WC - Nurse 3 - General Ulcer D/C NN Start: 08/12/22 11:05 Freq: Status: Active Protocol: Activity Type Activity Date Activity User E-sign Co-sign Detail Recorded Client Recorded Date Recorded By Document 08/12/22 12:21 JASEN [id number] 08/12/22 12:23 JASEN 08/12/22 12:21 Wound Care Nurse 3 #2 Left Ischial -Ulcer Cleansing Rinsed/ Irrigated with Saline -Negative Pressure Wound Therapy Continue -Setting (mmHg) 150 -Negative Pressure is Continuous -Regranex (If Applicable) Continue -NPWT Application Charge NPWT & Debridement (nc ) Pain Scale: 0-10 Numeric Is Patient Pain Free? Yes WC - Visit Discharge Discharge Condition Stable Ambulatory Status Wheelchair Transportation Private Auto Accompanied by Lab / Micro Data Attestation: I reviewed the patient's lab results. 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 Also turning him consistently will also be needed to minimize further worsening of these multiple massive pressure sores involving the sacral area, and bilateral ischial areas. They extend to the bone with some exposure. Initially recommend an operative excision of the pressure sores including a partial ostectomy for osteomyelitis. Soft tissue and bone will be sent to Pathology for analysis to rule out carcinoma and to evaluate for osteomyelitis. Soft tissue and bone will also be sent to Microbiology for culture. A positive culture will necessitate antibiotic therapy probably through a PICC line. Would get Inf ectious Diseases involved to help with the antibiotic management. The surgery will be done under general anesthesia with a surgical observation overnight stay in the hospital. Will continue the VAC. Also before surgery is done, will check a HgbA1c since he is diabetic. For elective surgeries such as wound closure with muscle flaps, the HgbA1c needs to be less than 8. The patient is making an effort to maximize his nutrition. His last Prealbumin on 07/29/22 was 24.9. Encourage nutritional supplementation with protein to help the healing process. He is presently on Varun supplements. It will be very difficult for the patient to maximize his nutrition completely on his own due to the massive size of the ulcers. There is an increased metabolic demand and a temporary feeding tube may be necessary down the line to continue the healing process. At the time of the surgery, I would like a CT Pelvis to evaluate the extent of possible osteomyelitis. There is a long way to go before contemplating wound closure with muscle flaps. The ulcers have to show evidence of healing with control of any infections and maximizing the nutrition prior to the flap surgeries. Due to the massive size of these pressure sores, local muscle flaps would be inadequate for closure. Patient would need a total thigh flap which necessitates an amputation and hip disarticulation in order to provide enough soft tissue for wound closure. Usually one amputation is enough. Sometimes it is not enough and bilateral amputations would be needed. Will schedule the initial excision of the pressure sores with partial ostectomies in the next week or two. After surgery will followup at the Wound Center. Encouraged patient to stop smoking as it may have deleterious effects on wound healing. Patient was informed of the risks and complications of the procedure including alternatives to surgery. These were discussed with the patient personally. Patient voices understanding and wishes to proceed.
--- NOTE | 2022-08-12 13:21 | PN.PCM_ITS ---
History of Present Illness Date of Service: 08/12/22 Chief Complaint: Follow-up on decubitus ulcer of the left ischium and sacral area History of Wound: This is a 52-year-old white male that developed sepsis and in December had an infection in the spine they trying to clean it out and he developed paralysis 2 days later postop. Patient was hospitalized for 3 months and developed 2 decubitus ulcers one in the sacral area and one on the left ischium area. They have progressively gotten worse and the are down to bone stage IV decubitus ulcers. Patient has been seen at the [facility] and was transferred to our center. This was through family's request. Patient is currently on a memory foam type bedding. Patient did have wound vacs but was removed by the physician feeling they were getting worse. And told just to do wet-to-dry dressings. So for the last month approximately has been doing wet-to-dry dressings to the sacral and left ischium area He also has developed a unstageable area on the underneath the left ischium that has eschar. Patient is currently receiving Zosyn through his PICC line. Patient is a smoker and diabetic. Is currently controlled with his Victoza metformin. He is also on clindamycin 3 times a day. Progress of Wound: Today the wounds measured smaller and less depth with the wound VAC that was applied over 2 weeks ago. Still has a very bad odor we will continue to debride the areas of need. We also had Dr. Woodall in for consult to discuss with family options for surgery. She will be right now a debridement surgery and biopsy of his bone. We will consult with Dr. Caraballo about his infections. He is currently at [facility] and has a PICC line but its not functioning properly will you will have all everything transferred up here. Patient is finally received his low air mattress and his hospital bed. Lab work was pretty good no sign of malnutrition. Patient still has to maintain his nutritional level and is taking Varun and Premier. Subjective Subjective is very pleased with so far outcomes Objective Data Objective Data We will continue the wound VAC at 150 mmHg. Debrided a lot of slough off of the wound base and in the left ischium. Vital Signs: Vital Signs Temp Pulse Resp BP 96.0 F L 76 18 152/85 H 08/12/22 11:06 08/12/22 11:06 08/08/22 00:27 08/12/22 11:06 Lab / Micro Data Attestation: I reviewed the patient's lab results. Physical Exam Const oriented x3 General Appearance: cooperative Exam Limitations: no limitations HEENT normocephalic Eyes PERRL Neck full ROM Resp normal respiratory effort Effort and Inspection: able to speak in complete sentences Auscultation: clear to auscultation bilaterally Cardio regular rate and regular rhythm Palpation: normal PMI Rate: regular rate Rhythm: regular rhythm GI Auscultation: normoactive bowel sounds Palpation: soft and no hepatosplenomegaly Back/Spine Cervical Spine: cervical ROM normal Thoracic Spine / Upper Back: normal to inspection Extremity normal to inspection Skin Skin Narrative: 2 large decubitus ulcers measuring around 10 x 20 cm with 5 cm in depth both on his left ischium and sacral area. Skin is beefy red does have some necrotic tissue in both. Currently receiving wet-to-dry dressings. Other skin areas look well intact and supple. Is well-nourished though he is then Neuro oriented x3 Psych Appearance: grossly normal Speech: normal speech Debridement Note Debridement Note Wound debrided: Sacral and right ischium ulcer Wound Grade/Stage: Stage IV Type of Debridement: Excisional debridement Anesthesia Used: 5% Lidocaine Gel Depth: to muscle and to bone Percentage of wound debrided: 100 Instrument Used: 7mm curette, #15 blade and Forceps Tissue Removed: Devitalized and fibrin Severity: Necrosis of Bone Amount of bleeding with debridement: Mild Bleeding Controlled with: Compression and gauze Patient tolerated procedure: Patient tolerated procedure well Post-Debridement Measurements and Additional Note: Post-Debridement Measurements/Treatment - Nurse 1 - General Ulcer Assessment Start: 08/12/22 11:05 Freq: Status: Active Protocol: [email or web address] Activity Type Activity Date Activity User E-sign Co-sign Detail Recorded Client Recorded Date Recorded By Document 08/12/22 11:06 JASEN [id number] 08/12/22 11:25 JASEN 08/12/22 11:06 - Today's Visit Information Type of service Follow-up Visit (Physician/CORPORATE COORDINATOR ) Arrival Mode Wheelchair Transfer Assistance Parker Lift Patient Identification Verified (Name & Yes ) Vital Signs Temperature (97.8 F-99.1 F) 96.0 F L Temperature Source Temporal Pulse Rate (60-100) 76 Pulse Location Monitor Blood Pressure (90/60-120/80) 152/85 H Blood Pressure Mean (mm Hg) 107 Source Monitor Position Sitting Blood Pressure Location Left Arm History Since Last Visit- (Skip if this is Patient's initial visit) Have you changed medications since your No last visit? Any new allergies or adverse reactions No Had a fall/change in ADL's that may No increase risk of falls Signs or symptoms of abuse and/or No neglect since last visit Have you been in the hospital since your No last visit? Has dressing in place as prescribed Yes Has compression in place as prescribed N/A Has offloadiing in place as prescribed N/A Experienced any changes in pain level or No management Left Footwear Regular Shoe Right Footwear Regular Shoe Pain Scale: 0-10 Numeric Is Patient Pain Free? Yes WC - Nurse 1 - General Ulcer Measurement Start: 08/12/22 11:05 Freq: Status: Active Protocol: Activity Type Activity Date Activity User E-sign Co-sign Detail Recorded Client Recorded Date Recorded By Document 08/12/22 11:06 JASEN [id number] 08/12/22 11:25 JASEN 08/12/22 11:06 Wound Center Nurse 1 #2 Left Ischial -Current Size (cm) - Length 13 -Current Size (cm) - Width 17.5 -Current Size (cm) - Depth 0.2 -Total Square Cm 227.5 -Undermining/Tunneling Starts (O'clock 11 ) -Undermining/Tunneling Ends (O'clock) 3 -Maximum Distance (cm) 2.7 -Exudate Amt Large -Exudate Type Serosanguineous -Wound Margin Distinct, Outline Attached -Granulation Amt Large (67-100%) -Granulation Quality Red -Necrosis Amt Medium (34-66%) -Necrotic Tissue Type Adherent Slough -Structure Exposed Bone,Fat Layer Exposed -Texture (Amanda-wound Skin Appearance) Assessed, Scarring -Moisture (Amanda-wound Skin Appearance) No Abnormality, Assessed -Color (Amanda-wound Skin Appearance) No Abnormality, Assessed -Temperature (Amanda-wound Skin No Abnormality Appearance) (Pt Warm) -Tenderness on Palpation (Amanda-wound No Skin Appearance) -Ulcer Cleansing Soap and Water -Foul Odor after Cleansing Yes -Anesthetic Used 4% Lidocaine Solution #1 Sacral cluster -Current Size (cm) - Length 25 -Current Size (cm) - Width 14 -Current Size (cm) - Depth 1.4 -Total Square Cm 350 -Undermining/Tunneling Starts (O'clock 8 ) -Undermining/Tunneling Ends (O'clock) 11 -Maximum Distance (cm) 3 -Exudate Amt Large -Exudate Type Serosanguineous -Wound Margin Distinct, Outline Attached -Granulation Amt Large (67-100%) -Granulation Quality Red -Necrosis Amt Medium (34-66%) -Necrotic Tissue Type Adherent Slough -Structure Exposed Bone,Fat Layer Exposed -Texture (Amanda-wound Skin Appearance) Assessed, Scarring -Moisture (Amanda-wound Skin Appearance) No Abnormality, Assessed -Color (Amanda-wound Skin Appearance) No Abnormality, Assessed -Temperature (Amanda-wound Skin No Abnormality Appearance) (Pt Warm) -Tenderness on Palpation (Amanda-wound No Skin Appearance) -Ulcer Cleansing Soap and Water -Foul Odor after Cleansing Yes -Anesthetic Used 4% Lidocaine Solution WC - Nurse 2 - General Ulcer CM Notes Start: 08/12/22 11:05 Freq: Status: Active Protocol: Activity Type Activity Date Activity User E-sign Co-sign Detail Recorded Client Recorded Date Recorded By Document 08/12/22 11:39 MW [id number] 08/12/22 12:14 MW 08/12/22 11:39 Wound Center Nurse 2 #3 Right ischial -Time 11:44 -Correct Patient Yes -Correct Side, Site, Position Yes -Correct Procedure Yes -Procedure Performed No -Tunneling No -Undermining/Tunneling No -Circular Undermining No -Wound/Ulcer Outcome Converted -Ulcer Cleansing Rinsed/ Irrigated with Saline -Foul Odor after Cleansing No -Bioengineered Tissue No -Bleeding Controlled with Pressure -Treatment Response Procedure Tolerated Well -Offloading No -Debridement - Subq, 1st 20sq cm No #2 Left Ischial -Time 11:44 -Correct Patient Yes -Correct Side, Site, Position Yes -Correct Procedure Yes -Procedure Performed Yes -Type of Procedure Debridement -Clinical Debridement Subcutaneous -Tissue Removed Subcutaneous -Post Debridement (cm) - Length 16.5 -Post Debridement (cm) - Width 14.0 -Post Debridement (cm) - Depth 1.5 -Total Square (Post) (cm) 231.00 -Area of Debridement (cm) - Length 16.5 -Area of Debridement (cm) - Width 14.0 -Total Square (Area) (cm) 231.00 -Tunneling No -Undermining/Tunneling No -Circular Undermining No -Wound/Ulcer Outcome Not Healed -Ulcer Cleansing Rinsed/ Irrigated with Saline -Foul Odor after Cleansing No -Bioengineered Tissue No -Bleeding Controlled with Pressure -Treatment Response Procedure Tolerated Well -Offloading No -Debridement - Subq, 1st 20sq cm Yes -Debridement, SubQ, ea addt'l 20sq cm 27 or part thereof #1 Sacral cluster -Time 11:44 -Correct Patient Yes -Correct Side, Site, Position Yes -Correct Procedure Yes -Procedure Performed Yes -Type of Procedure Debridement -Clinical Debridement Subcutaneous -Tissue Removed Subcutaneous -Post Debridement (cm) - Length 24.0 -Post Debridement (cm) - Width 13.5 -Post Debridement (cm) - Depth 2.0 -Total Square (Post) (cm) 324.00 -Area of Debridement (cm) - Length 24.0 -Area of Debridement (cm) - Width 13.5 -Total Square (Area) (cm) 324.00 -Tunneling No -Undermining/Tunneling No -Circular Undermining No -Wound/Ulcer Outcome Not Healed -Ulcer Cleansing Rinsed/ Irrigated with Saline -Foul Odor after Cleansing No -Bioengineered Tissue No -Bleeding Controlled with Pressure -Treatment Response Procedure Tolerated Well -Offloading No -Debridement - Subq, 1st 20sq cm No Pain Scale: 0-10 Numeric Is Patient Pain Free? Yes - Nurse 3 - General Ulcer D/C NN Start: 08/12/22 11:05 Freq: Status: Active Protocol: Activity Type Activity Date Activity User E-sign Co-sign Detail Recorded Client Recorded Date Recorded By Document 08/12/22 12:21 JASEN [id number] 08/12/22 12:23 JASEN 08/12/22 12:21 Wound Care Nurse 3 #2 Left Ischial -Ulcer Cleansing Rinsed/ Irrigated with Saline -Negative Pressure Wound Therapy Continue -Setting (mmHg) 150 -Negative Pressure is Continuous -Regranex (If Applicable) Continue -NPWT Application Charge NPWT & Debridement (nc ) Pain Scale: 0-10 Numeric Is Patient Pain Free? Yes WC - Visit Discharge Discharge Condition Stable Ambulatory Status Wheelchair Transportation Private Auto Accompanied by Additional Wound Wound debrided: Left buttocks Laterality: Left Wound Grade/Stage: Decubitus ulcer stage IV Type of Debridement: Excisional debridement Anesthesia Used: 5% Lidocaine Gel Depth: in the subcutaneous layer Percentage of wound debrided: 100 Instrument Used: 7mm curette Tissue Removed: Fibrin Severity: Fat Layer Exposed Amount of bleeding with debridement: Mild Bleeding Controlled with: Compression and gauze Patient tolerated procedure: Patient tolerated procedure well Assessment/Plan Assessment/Plan (1) Decubitus ulcer of left buttock, stage 4: CODE(S): L89.324 - Pressure ulcer of left buttock, stage 4 PLAN: Wound VAC to left buttocks with a bridge to sacral and left ischium. 150 mmHg is to watch and to learn how to apply wound VAC Wound VAC will be changed twice weekly by home health care nurse If patient loses seal and unable to get a better seal then she is to go back to Wash wound with Hibiclens rinse with normal saline or water pack with Burow solution and Kerlix to wound base cover with ABDs and tape 2 times a day (2) Decubitus ulcer of sacral region, stage 4: CODE(S): L89.154 - Pressure ulcer of sacral region, stage 4 (3) Smoker: CODE(S): F17.200 - Nicotine dependence, unspecified, uncomplicated PLAN: Continue to try to stop smoking (4) Decubitus ulcer of right buttock, stage 3: CODE(S): L89.313 - Pressure ulcer of right buttock, stage 3 PLAN: Wound VAC applied with bridge and 120 mmHg if fails then Wash area with antibacterial soap and apply the Burow solution saturated and Colton and ABDs and tape every day Consult done to Dr. Caraballo at the infectious disease doctor consult also with Dr. Woodall for surgical debridement and bone biopsy His office will contact family as to when that will happen. Patient is to follow-up with us until that occurs
--- NOTE | 2022-08-17 10:41 | CM.ED ---
JOSI received call from Le, patient's . Le said that her is at [facility] in [place]. Le said that her is followed by [facility]. Le said that her was admitted this weekend at [place]. Starla said that her is not comfortable at [facility] and wants to come to [facility]. Le said that her is currently in the ICU and butting heads with the doctor. Le said that her is a full code and they want him to be a DNR CC and go home and . Le said that the Wound Center wants him at [facility]. Patient does not have a feeding tube and [facility] does not want to give him a feeding tube but said he needs one. JOSI will check with staff and call Le back. JOSI called [facility] and she stated they can take patient's with a feeding tube. JOSI spoke to Show Card Writer, Carrington Calles. Cyn said that patient can request another hospital and to have patient request transfer to [facility] and the MD will need to talk to [facility] MD. MD at [facility] will need to call power brake operator. JOSI called Le back. JOSI explained that patient can request transfer to another hospital per patient's request and that he or she needs to talk to the MD. Le said that she tried to talk about it yesterday and the MD was not responsive. Le asked if she could have another MD and this typewriter assembler said that patient has the right to request a new MD. Le stated she would also take information about TCU program. JOSI provided Le with TCU phone number. JOSI called Eun and updated her regarding patient. Plan: Support given to patient's . Jenniffer HENNESSY
--- NOTE | 2022-08-19 14:21 | WC ---
Spoke to patient Le Gary. She stated patient was admitted to [facility] in [place] for dehydration and infection Wednesday. Surgery consulted today for PEG tube placement today or tomorrow. Picc line was assessed and now working. He is receiving IV antibiotics. Wound vac was stopped per ER doctor. Infectious disease [facility] at [facility] ordered Dakins wet to dry to Sacral, right and left buttock pressure sores. Le said is leaving it up to her if she wants the vac put back on. She stated she was re-applying vac this evening. She will keep us updated on his progress and discharge home. Renu Toth ENAMEL SHADER and Akbar VEGAM updated.
== END 2022-09-07 23:59 | disposition home or self-care (01) ==
LOC: WC 10:35
PROVIDERS: Referring Provider Nurse Practitioner; Visit Provider Nurse Practitioner
DX: L89.154 Pressure ulcer of sacral region, stage 4 (principal); L89.324 Pressure ulcer of left buttock, stage 4; L89.134 Pressure ulcer of right lower back, stage 4; L89.144 Pressure ulcer of left lower back, stage 4; L89.314 Pressure ulcer of right buttock, stage 4; L89.313 Pressure ulcer of right buttock, stage 3; E11.9 Type 2 diabetes mellitus without complications; F17.200 Nicotine dependence, unspecified, uncomplicated; Z79.84 Long term (current) use of oral hypoglycemic drugs
CPT/HCPCS: 11042; 11045